=== PATIENT | male | born 1945 | race Caucasian/White ===

== ENCOUNTER 2020-04-10 13:55 | Outpatient (CLI) | payer MEDICARE, SELFPAY ==
--- NOTE | ~2020-04-10 | XR_ITS ---
EXAMINATION: XR knee LT min 4V DATE: 04/10/2020 14:18 INDICATION: Left knee pain. TECHNIQUE: 4 views of left knee were obtained. COMPARISON: None. FINDINGS: Bone alignment is normal. No fracture. There is mild tricompartmental osteoarthritis. No kn ee joint effusion. IMPRESSION: 1. Mild left knee osteoarthritis. Reviewed, dictated and finalized at location A.
== END 2020-04-10 13:56 | disposition home or self-care (01) ==
PROVIDERS: PCP Family Medicine Adolescent Medicine; Visit Provider Family Medicine Adolescent Medicine
DX: M25.562 Pain in left knee (principal); M17.12 Unilateral primary osteoarthritis, left knee
CPT/HCPCS: 73564

== ENCOUNTER 2021-06-08 02:11 | Day surgery (SDC) | payer MEDICARE, SELFPAY ==
[2021-05-28 11:49] VITALS: BMI 29.0
[2021-06-08 08:44] VITALS: BP 153/70; PULSE 71; RESP 16; TEMP 35.9; O2SAT 95; BMI 29.6
--- NOTE | 2021-06-08 08:57 | WPDANESEPPF ---
Anes - Initial Pre Proc Eval Procedure: Operation Date: 06/08/21 09:30 Proposed Procedures p Screening Colonoscopy - Blake Ledesma MD Date/Time: 06/08/21 08:57 Surgeon: Blake Ledesma MD Pre Op Diagnosis: hx of colon ca/polyps Patient Data Age: 75 Gender: M Height: 1.85 m Weight: 100 kg Allergies Allergy/AdvReac Type Severity Reaction Status Date / Time Mold (Blue) Cheese Allergy Mild na Uncoded 06/08/21 08:54 RAGWEED Allergy Mild na Uncoded 06/08/21 08:54 Home Medications Medication Instructions Recorded Confirmed Type allopurinol 300 mg tablet 300 mg PO DAILY 02/05/20 05/28/21 History aspirin 325 mg tablet 325 mg PO DAILY 02/05/20 05/28/21 History atorvastatin 80 mg tablet 80 mg PO DAILY 02/05/20 05/28/21 History bupropion HCl 200 mg tablet,12 hr 200 mg PO DAILY 02/05/20 05/28/21 History sustained-release cyanocobalamin (vitamin B-12) 1,000 mcg IM MONTHLY 02/05/20 05/28/21 History 1,000 mcg/mL injection kit ergocalciferol (vitamin D2) 50,000 50,000 unit PO WEEKLY 02/05/20 05/28/21 History unit tablet paroxetine HCl 40 mg tablet 40 mg PO DAILY 02/05/20 05/28/21 History propranolol 80 mg capsule,extended 80 mg PO DAILY 02/05/20 06/08/21 History release 24 hr melatonin 5 mg capsule 10 mg PO DAILY cap 02/13/20 05/28/21 History metformin 500 mg tablet 1,500 mg PO DAILY tablet 02/13/20 05/28/21 History quetiapine 200 mg tablet 250 mg PO DAILY tablet 02/13/20 05/28/21 History testosterone cypionate 200 mg/mL 1.5 mg IM MONTHLY ml 02/13/20 05/28/21 History intramuscular oil insulin NPH isoph U-100 human 100 36 unit SUBCUT DAILY ml 03/10/21 06/08/21 History unit/mL (3 mL) subcutaneous pen lisinopril 10 mg tablet 10 mg PO DAILY tablet 03/10/21 05/28/21 History sodium,potassium,mag sulfates See Rx Instructions .ROUTE 05/27/21 Rx [Suprep Bowel Prep Kit] .COMPLEX #1 ml nitroglycerin 0.4 mg SUBLINGUAL Q5M PRN 05/28/21 05/28/21 History Patient hx anesthesia problems: none Family hx anesthesia problems: none [facility] Past Medical History Medical History After cataract, bilateral Colon cancer Coronary artery disease Diabetes Hypersomnia Hypertension Rhinitis Sleep apnea Surgical History Surgical History Hx of CABG Family History Family History Father Kidney failure CHF (congestive heart failure) Mother Cerebrovascular accident Narcolepsy Social History Social History Smoking packs per day: 1 Smoking cigarettes per day: 20.0 Years smoked: 20 Smoking pack-years: 20.00 Smoking status: Former smoker Tobacco type: cigarettes and cigars Smoking end date: 11/07/85 Living arrangements: with family Spiritual care concerns: No Anes - Eval Final PreProcedure Day of Procedure 06/08/21 08:57 Patient weight: obese Heart: regular rate and rhythm and murmur (II/ SM) Lungs: clear to auscultation Airway: Mallampati scale class II Neurological: alert and oriented Last oral intake: >/= 8 hours ASA classification: III Emergent: no Anesthetic plan: proceed Anesthesia type and monitoring: general GIVS and standard monitoring Informed Consent: The patient's anesthetic plan and its attendant risks and benefits were discussed with the patient/family/POA. Questions were solicited and answers provided to the satisfaction of the patient/family/POA.
[2021-06-08 09:10] LABS: Glucose Point of Care 82 mg/dl (65-105)
[2021-06-08] MEDS: LACTATED RINGERS 1,000 ML 150 ML IV CONT (09:10)
--- NOTE | 2021-06-08 09:16 | PM.HPGS ---
History of Present Illness History of Present Illness Consent: Risks, benefits, and alternatives have been discussed and questions answered. Patient agrees to proceed with procedure. Chief complaint: hx of colon ca/polyps Narrative: Blake Graham is a 75 year old male here for colon cancer screening. He has a history of colon cancer 18 years ago. He also has had polyps removed in the past. Review of Systems Review of Systems: All systems reviewed & are unremarkable except as noted in HPI and below PMFSH Past Medical History Medical History After cataract, bilateral Colon cancer Coronary artery disease Diabetes Hypersomnia Hypertension Rhinitis Sleep apnea Surgical History Surgical History Hx of CABG Family History Family History Father Kidney failure CHF (congestive heart failure) Mother Cerebrovascular accident Narcolepsy Social History Social History Smoking packs per day: 1 Smoking cigarettes per day: 20.0 Years smoked: 20 Smoking pack-years: 20.00 Smoking status: Former smoker Tobacco type: cigarettes and cigars Smoking end date: 11/07/85 Living arrangements: with family Spiritual care concerns: No Meds Home Medications and Allergies Home Medications Medication Instructions Recorded Confirmed Type allopurinol 300 mg tablet 300 mg PO DAILY 02/05/20 05/28/21 History aspirin 325 mg tablet 325 mg PO DAILY 02/05/20 05/28/21 History atorvastatin 80 mg tablet 80 mg PO DAILY 02/05/20 05/28/21 History bupropion HCl 200 mg tablet,12 hr 200 mg PO DAILY 02/05/20 05/28/21 History sustained-release cyanocobalamin (vitamin B-12) 1,000 mcg IM MONTHLY 02/05/20 05/28/21 History 1,000 mcg/mL injection kit ergocalciferol (vitamin D2) 50,000 50,000 unit PO WEEKLY 02/05/20 05/28/21 History unit tablet paroxetine HCl 40 mg tablet 40 mg PO DAILY 02/05/20 05/28/21 History propranolol 80 mg capsule,extended 80 mg PO DAILY 02/05/20 06/08/21 History release 24 hr melatonin 5 mg capsule 10 mg PO DAILY cap 02/13/20 05/28/21 History metformin 500 mg tablet 1,500 mg PO DAILY tablet 02/13/20 05/28/21 History quetiapine 200 mg tablet 250 mg PO DAILY tablet 02/13/20 05/28/21 History testosterone cypionate 200 mg/mL 1.5 mg IM MONTHLY ml 02/13/20 05/28/21 History intramuscular oil insulin NPH isoph U-100 human 100 36 unit SUBCUT DAILY ml 03/10/21 06/08/21 History unit/mL (3 mL) subcutaneous pen lisinopril 10 mg tablet 10 mg PO DAILY tablet 03/10/21 05/28/21 History sodium,potassium,mag sulfates See Rx Instructions .ROUTE 05/27/21 Rx [Suprep Bowel Prep Kit] .COMPLEX #1 ml nitroglycerin 0.4 mg SUBLINGUAL Q5M PRN 05/28/21 05/28/21 History Allergies Allergy/AdvReac Type Severity Reaction Status Date / Time Mold (Blue) Cheese Allergy Mild na Uncoded 06/08/21 08:54 RAGWEED Allergy Mild na Uncoded 06/08/21 08:54 Vital Signs Vital Signs - 24 hr 06/08/21 08:44 Temperature 35.9 C L Pulse Rate 71 Respiratory Rate 16 Blood Pressure 153/70 H Pulse Oximetry 95 Exam Resp: Auscultation: clear to auscultation bilaterally Cardio: Rate: regular rate Rhythm: regular rhythm GI: GI Palp: Yes Soft to palpation and No Tenderness to palpation present (GI) Assessment and Plan Assessment and plan (1) Colon cancer screening: Code(s): Z12.11 - Encounter for screening for malignant neoplasm of colon Status: Acute Assessment and Plan: Colonoscopy with possible biopsy or polypectomy or cautery or injection of substances.
[2021-06-08] MEDS: SIMETHICONE ORAL SUSPENSION 20 MG/0.3 ML 30 ML BOTTLE 0.6 ML IRRIGATION (09:53)
[2021-06-08 10:04] VITALS: BP 102/53; PULSE 57; RESP 27; O2SAT 95
[2021-06-08 10:14] VITALS: BP 116/64; PULSE 61; RESP 18; O2SAT 95
[2021-06-08 10:24] VITALS: BP 146/64; PULSE 62; RESP 16; O2SAT 95
[2021-06-08 10:25] LABS: Glucose Point of Care 72 mg/dl (65-105)
--- NOTE | 2021-06-08 10:26 | SUR.PHASEII ---
1026 FINGER STICK BLOOD GLUCOSE 72MG/DL. MORAIMA MIST TO DRINK.
== END 2021-06-08 10:31 | disposition home or self-care (01) ==
PROVIDERS: PCP Family Medicine Adolescent Medicine; Visit Provider Internal Medicine Gastroenterology
PROC: 0DJD8ZZ Inspection of Lower Intestinal Tract, Via Natural or Artificial Opening Endoscopic (ICD-10-PCS; CPT 45378; principal; 2021-06-08 09:30)
DX: Z12.11 Encounter for screening for malignant neoplasm of colon (principal); Z85.038 Personal history of other malignant neoplasm of large intestine; Z90.49 Acquired absence of other specified parts of digestive tract; Z98.0 Intestinal bypass and anastomosis status; I10 Essential (primary) hypertension; E11.9 Type 2 diabetes mellitus without complications; I25.10 Atherosclerotic heart disease of native coronary artery without angina pectoris; Z95.1 Presence of aortocoronary bypass graft; G47.30 Sleep apnea, unspecified; Z87.891 Personal history of nicotine dependence; Z79.82 Long term (current) use of aspirin; Z79.84 Long term (current) use of oral hypoglycemic drugs; Z79.4 Long term (current) use of insulin
CPT/HCPCS: G0105; 82948; J2704; J7120

== ENCOUNTER 2023-02-18 00:19 | Day surgery (SDC) | payer MEDICARE, SELFPAY ==
[2023-02-18] VITALS (17 sets, daily range): BP systolic 142–172; BP diastolic 56–80; PULSE 50–65; RESP 11–20; TEMP 36.3; O2SAT 96–100; BMI 29.5
[2023-02-18 07:54] LABS: Basophils Percent Auto 0.6 % (0.2-1.2); Eosinophils Absolute Auto 0.3 K/mm3 (0-0.3); Eosinophils Percent Auto 5.3 % (0-4.4); Hematocrit 36.3 % (42.0-52.0); Hemoglobin 11.5 g/dL (14.0-18.0); Immature Granulocyte Absolute 0.02 K/mm3 (0.00-0.031); Immature Granulocyte Percent A 0.3 % (0-0.5); Lymphocytes Absolute Auto 1.61 K/mm3 (0.9-3.2); Lymphocytes Percent Auto 25.8 % (18.3-44.2); Mean Corpuscular HGB Conc 31.7 g/dl (32-36); Mean Corpuscular Hemoglobin 29.8 pg (26-34); Mean Platelet Volume 10.8 fl (7.4-10.4); Monocytes Absolute Auto 0.6 K/mm3 (0.1-0.6); Monocytes Percent Auto 9.9 % (2.6-8.5); Neutrophils Absolute Auto 3.6 K/mm3 (1.3-6.7); Neutrophils Percent Auto 58.1 % (45.5-73.1); Platelet Count Result 195 k/mm3 (150-375); Red Blood Count 3.86 M/mm3 (4.6-6.20); Red Cell Distribution Width 14.7 % (11.5-14.5); White Blood Count 6.3 K/mm3 (4.5-10.0)
--- NOTE | 2023-02-18 07:58 | ECG_ITS ---
Measurements Intervals [place] Rate: 58 P: AR: 0 QRS: 9 QRSD: 109 T: 123 QT: 414 QTc: 409 Interpretive Statements SINUS BRADYCARDIA WITH 2ND DEGREE AV BLOCK, MOBITZ TYPE I (WENCKEBACH) BASELINE ARTIFACT LEFT VENTRICULAR HYPERTROPHY AND ST-T CHANGE ABNORMAL ECG NO PREVIOUS ECG AVAILABLE FOR COMPARISON Electronically Signed On 02-18-2023 16:44:56 CDT by Eligio Handy M.D.
[2023-02-18 08:05] LABS: Anion Gap 8 mmol/L (8-16); Blood Urea Nitrogen 25 mg/dL (9-20); Calcium 9.3 mg/dL (8.4-10.2); Carbon Dioxide 21 mmol/L (22-30); Chloride 110 mmol/L (98-107); Estimated CRCL calculation 67 ml/min; Estimated Glomerular Filt Rate > 60; Glucose 106 mg/dL (65-110); Potassium 4.6 mmol/L (3.4-5.0); Sodium 139 mmol/L (137-145)
--- NOTE | 2023-02-18 10:18 | WPDCARDPROC ---
Cardiac Cath Procedure Note Date of procedure:: 02/18/23 Performing physician:: German Cramer MD Indication:: severe symptomatic aortic stenosis previous CABG Brief clinical history:: this is a 77-year-old man with coronary artery disease who underwent coronary bypass grafting in the past. He now has developed severe symptomatic aortic valve stenosis. Because of worsening dyspnea right left heart catheterization has been scheduled for today with an eye towards referral for cardiothoracic surgery consultation. Procedure Procedure performed:: right heart catheterization left ventriculography coronary angiography vein graft angiography internal mammary graft angiography calculation of aortic valve area Sedation/Medication given:: fentanyl 50 mg Versed 2 mg case start time 9:22 a.m. case end time 10:12 a.m. sedation provided by Zohreh RINALDI, trained observer Access site:: right femoral artery, right femoral vein Estimated blood loss:: 25 cc Procedure note:: patient was brought to the cardiac catheterization lab in the postabsorptive state where the right femoral triangle was prepared and draped fashion. Anesthesia was provided with 1% lidocaine infiltrated locally. Using the modified Seldinger technique the femoral vein was punctured and a 7 [place] vascular sheath was placed. After this the femoral artery was punctured and a 6 [place] vascular sheath was placed. I then used a balloon tip [place]-Ravinder catheter to perform right heart catheterization measuring hemodynamics and thermodilution cardiac output and sampling av O2 difference. The [place]-Ravinder catheter was then removed. I used a 6 [place] double-lumen pigtail catheter to measure simple taney is pressures in the aorta. Following this I used a straight guidewire to probe the stenotic aortic valve, after several tries successfully cross the valve into the left ventricle and then flushed both lumens and measure simultaneous LV and aortic pressures. Following this aortic valve area was calculated. After these calculations left ventriculography was performed in the 30 degree FERNÁNDEZ projection. The pigtail catheter was then withdrawn. I used a standard 5 [place] FL4 catheter to engage inject the left coronary artery in multiple projections. Then used a standard 5 [place] JR4 catheter to engage and inject the right coronary artery as well as the saphenous vein graft. Following this I used a 5 [place] WENDY catheter to engage and inject the lead internal mammary graft. The cineangiograms were then reviewed and the case was terminated. An angiogram was done of the femoral artery through the sheath after which it was determined the sheath would be with direct manual compression as there was significant stenosis at the puncture site. 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 Findings:: Hemodynamics: Right atrial mean pressure is 13. Right ventricle 38 over 7 end-diastolic 11 pulmonary artery pressure 42 over 11 pulmonary capillary wedge pressure 22. Central aortic pressure 110 over 44 a left ventricle 180 over 0 end-diastolic pressure 22. Mean aortic valve gradient is 44.5 mmHg peak gradient 84 mmHg. The thermodilution cardiac output is 4.3 liters/minutes giving an index of 1.9. Aortic valve area 0.59 cm2. Left ventricle: The LV appears to be normal in size all segments contract appropriately. The global ejection fraction I would visually estimate to be 55%. The aortic valve is heavily calcified with poor leaflet mobility. Left main coronary artery is medium in caliber there is mild distal left main disease about 40-50% stenosis. The left anterior descending is a moderate caliber artery with stent material in the proximal segment of the LAD. There are 2 proximal lesions in the LAD of more than 90%. This includes InStent stenosis. Distal to this there is competitive filling seen in the LA
== END 2023-02-18 18:35 | disposition home or self-care (01) ==
PROVIDERS: PCP Family Medicine Adolescent Medicine; Visit Provider Specialist
PROC: 4A023N8 Measurement of Cardiac Sampling and Pressure, Bilateral, Percutaneous Approach (ICD-10-PCS; CPT 93461; principal; 2023-02-18 09:00)
DX: I35.0 Nonrheumatic aortic (valve) stenosis (principal); I25.10 Atherosclerotic heart disease of native coronary artery without angina pectoris; R06.00 Dyspnea, unspecified; Z95.1 Presence of aortocoronary bypass graft; Z95.5 Presence of coronary angioplasty implant and graft; Z85.038 Personal history of other malignant neoplasm of large intestine; Z90.49 Acquired absence of other specified parts of digestive tract; Z79.82 Long term (current) use of aspirin; Z79.4 Long term (current) use of insulin; Z79.84 Long term (current) use of oral hypoglycemic drugs
CPT/HCPCS: 36415; 80048; 85025; 93005; 93461; C1769; C1887; C1894; J1644; J2250; J3010; J7040

== ENCOUNTER 2023-05-06 12:16 | Inpatient (IN) | payer MEDICARE, SELFPAY ==
[2023-05-06] VITALS (29 sets, daily range): BP systolic 159–191; BP diastolic 59–78; PULSE 50–89; RESP 12–22; TEMP 36.4–36.7; O2SAT 10–99; BMI 29.9
--- NOTE | ~2023-05-06 | XR_ITS ---
EXAMINATION: XR chest 2V DATE: 05/06/2023 13:56 INDICATION: Shortness of breath. Prior asbestos exposure. TECHNIQUE: PA and lateral views of the chest were obtained. COMPARISON: Chest radiograph dated 07/27/2018 and 10/28/2017 FINDINGS: No significant change in chronic linear and bandlike atelectasis/scarring the left lower lung zone an d pleural thickening versus chronic small loculated left pleural effusion. Small calcified right midd le lobe nodule consistent with old granulomatous disease. No pleural effusion or pneumothorax. Cardio megaly. Median sternotomy wires and mediastinal surgical clips are seen, likely from prior coronary a rtery bypass grafting. Aortic valve repair. Cholecystectomy clips in right upper quadrant. There are bridging osteophytes at multiple levels in the spine, consistent with diffuse idiopathic skeletal hyp erostosis (DISH). IMPRESSION: 1. Unchanged atelectasis/scarring at the left lower lung zone with associated chronic small left pleu ral effusion versus pleural thickening. No acute cardiopulmonary disease. 2. Cardiomegaly. Reviewed, dictated and finalized at location A. IMPRESSION: 1. Unchanged atelectasis/scarring at the left lower lung zone with associated c hronic small left pleural effusion versus pleural thickening. No acute cardiopu lmonary disease. 2. Cardiomegaly.
--- NOTE | 2023-05-06 13:36 | ECG_ITS ---
Measurements Intervals [place] Rate: 51 P: -14 MI: 237 QRS: 3 QRSD: 106 T: 53 QT: 449 QTc: 417 Interpretive Statements SINUS BRADYCARDIA WITH SECOND-DEGREE AV BLOCK MOBITZ TYPE 1 NONSPECIFIC T-WAVE ABNORMALITY ABNORMAL ECG COMPARED TO ECG 02/18/2023 08:02:56 NO DIFFERENCE Electronically Signed On 05-06-2023 17:20:05 CDT by German Cramer M.D.
--- NOTE | 2023-05-06 13:56 | ED.RECABL ---
HPI - Recheck/Abnormal Lab/Rx General Chief Complaint: Recheck/Abnormal Lab/Rx Stated Complaint: heavy breathing, htn; post op issue Time Seen by Provider: 05/06/23 12:51 History of Present Illness HPI narrative: Patient is a 77-year-old male with a recent TAVR presenting with shortness of breath. Patient's is at bedside and assists with the history. Patient had a TAVR on April 15 at [facility]. For the last week or so he has had worsening dyspnea and orthopnea. They spoke with their surgical team who advised he come in for evaluation. States that he is extremely short of breath with any exertion. Reports mild lightheadedness but no chest pain. No leg swelling. Denies fevers or chills. Denies further complaints. Related Data Home Medications Medication Instructions Recorded Confirmed bupropion HCl 200 mg tablet,12 hr 200 mg PO DAILY 02/05/20 05/06/23 sustained-release ergocalciferol (vitamin D2) 50,000 50,000 unit PO WEEKLY 02/05/20 05/06/23 unit tablet melatonin 5 mg capsule 10 mg PO DAILY 02/13/20 05/06/23 quetiapine 200 mg tablet (Seroquel) 250 mg PO HS 02/13/20 05/06/23 quetiapine 50 mg tablet 50 mg PO QHS 04/21/22 05/06/23 aspirin 81 mg tablet,delayed 81 mg PO DAILY 04/19/23 05/06/23 release (Adult Low Dose Aspirin) clopidogrel 75 mg tablet 75 mg PO DAILY 04/19/23 05/06/23 hydralazine 25 mg tablet 25 mg PO TID 04/19/23 05/06/23 insulin admin supplies 04/25/23 05/06/23 allopurinol 300 mg tablet 1 mg PO DAILY 05/06/23 05/06/23 paroxetine HCl 40 mg tablet 40 mg PO HS 05/06/23 05/06/23 propranolol 80 mg capsule,24 80 mg PO DAILY 05/06/23 05/06/23 hr,extended release Allergies Allergy/AdvReac Type Severity Reaction Status Date / Time Mold Allergy Mild Cough Uncoded 05/06/23 18:59 RAGWEED Allergy Mild na Uncoded 05/06/23 18:59 Review of Systems Review of Systems: All systems reviewed & are unremarkable except as noted in HPI and below PMFSH Past Medical History Medical History After cataract, bilateral BPH (benign prostatic hyperplasia) Depression with anxiety Diabetes History of colon cancer With chemotherapy and colectomy History of mitral valve prolapse Hypersomnia Hypertension Nephrolithiasis Personal history of colonic polyps Personal history of other malignant neoplasm of large intestine (~2000) Sleep apnea W[place]ke[place] Surgical History Surgical History H/O cataract removal with insertion of prosthetic lens (~2020) H/O heart artery stent (~2005) History of cholecystectomy (~1985) History of colectomy History of colonoscopy with polypectomy History of lithotripsy History of prosthetic aortic valve (04/2023) History of surgical amputation of finger of right hand Partial History of ventral hernia repair Hx of CABG (~2009) Triple bypass and then he had a broken wire that need to be repaired. Family History Family History Father Kidney failure CHF (congestive heart failure) Heart disease Hypertension Mother Cerebrovascular accident Narcolepsy Other Carcinoma of colon Colon polyp Depression Diabetes mellitus Social History Social History Social History: The patient lives with his who is the durable power civil litigation attorney for healthcare. The patient has 1 child. The patient used to smoke. 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 Code status full code Smoking packs per day: 1 Smoking cigarettes per day: 20.0 Years smoked: 20 Smoking pack-years: 20.00 Smoking status: Former smoker Tobacco type: cigarettes and cigars Second hand tobacco smoke exposure: No Smoking end date: 11/07/85 Alcohol intake: never Substance use: never Substance use type: does not use Lack of Transportation: No Lack
[2023-05-06 13:57] LABS: Basophils Percent Auto 0.5 % (0.2-1.2); Eosinophils Absolute Auto 0.2 K/mm3 (0-0.3); Eosinophils Percent Auto 3.6 % (0-4.4); Hematocrit 32.7 % (42.0-52.0); Hemoglobin 10.2 g/dL (14.0-18.0); Immature Granulocyte Absolute 0.01 K/mm3 (0.00-0.031); Immature Granulocyte Percent A 0.2 % (0-0.5); Lymphocytes Absolute Auto 1.04 K/mm3 (0.9-3.2); Mean Corpuscular HGB Conc 31.2 g/dl (32-36); Mean Corpuscular Hemoglobin 29.3 pg (26-34); Mean Platelet Volume 10.4 fl (7.4-10.4); Monocytes Absolute Auto 0.8 K/mm3 (0.1-0.6); Monocytes Percent Auto 14.2 % (2.6-8.5); Neutrophils Absolute Auto 3.7 K/mm3 (1.3-6.7); Neutrophils Percent Auto 63.5 % (45.5-73.1); Platelet Count Result 204 k/mm3 (150-375); Red Blood Count 3.48 M/mm3 (4.6-6.20); Red Cell Distribution Width 15.4 % (11.5-14.5); White Blood Count 5.8 K/mm3 (4.5-10.0)
[2023-05-06 14:07] LABS: INR 1.1; Prothrombin Time 14.3 Seconds (11.1-14.7)
[2023-05-06 14:08] LABS: Partial Thromboplastin Time 34.5 SECONDS (22.3-36.8)
[2023-05-06 14:11] LABS: Alanine Aminotransferase 24 U/L (6-50); Alkaline Phosphatase 82 U/L (38-126); Anion Gap 6 mmol/L (8-16); Aspartate Amino Transferase 29 U/L (17-59); Bilirubin,Total 0.9 mg/dL (0.2-1.3); Blood Urea Nitrogen 18 mg/dL (9-20); Calcium 9.2 mg/dL (8.4-10.2); Carbon Dioxide 25 mmol/L (22-30); Chloride 108 mmol/L (98-107); Estimated CRCL calculation 75 ml/min; Estimated Glomerular Filt Rate > 60; Glucose 83 mg/dL (65-110); Potassium 4.4 mmol/L (3.4-5.0); Sodium 139 mmol/L (137-145)
[2023-05-06 14:22] LABS: NT Pro B Type Natriuretic Pept 1470 pg/mL (19.9-100); Troponin I 0.017 ng/mL (0.000-0.034)
[2023-05-06 14:33] LABS: Influenza A QL RT-PCR Negative (Negative); Influenza B QL RT-PCR Negative (Negative); SARS-CoV-2 RNA PCR Negative (Negative)
--- NOTE | 2023-05-06 15:18 | ECG_ITS ---
Measurements Intervals [place] Rate: 52 P: 51 HI: 213 QRS: 6 QRSD: 106 T: 55 QT: 449 QTc: 418 Interpretive Statements SINUS BRADYCARDIA SECOND-DEGREE AV BLOCK MOBITZ TYPE [address] DEPRESSION [0.025+ mV ST DEPRESSION] ABNORMAL ECG COMPARED TO ECG 05/06/2023 14:18:01 NO DIFFERENCE t Electronically Signed On 05-06-2023 17:24:29 CDT by German Cramer M.D.
[2023-05-06 17:07] LABS: Troponin I 0.016 ng/mL (0.000-0.034)
--- NOTE | 2023-05-06 18:10 | PM.IMHP ---
H&P: HPI History of Present Illness Date/Time: 05/06/23 18:10 Chief Complaint: Difficulty breathing Narrative: This is a 77-year-old male patient who underwent a TAVR on April 15 at [facility]. The patient has had worsening dyspnea and orthopnea. The ED physician spoke with the surgical team and was advised that the patient should come in for evaluation. The patient was extremely short of breath. Is reported that the surgical team attempted to have an emergency echo set up but they were unable to perform this at [facility]. Is reported to me from the ED physician that the patient was not accepted at [facility] and it was felt that the patient could be managed year. The patient denies any fever chills. No further complaints. His H&H is 10.2 and 32.7. His blood sugar was 146. Troponin negative x3. BNP was listed as 1470. The patient was negative for influenza A/B and COVID. Chest x-ray was read as the followingUnchanged atelectasis/scarring at the left lower lung zone with associated chronic small left pleural effusion versus pleural thickening. No acute cardiopulmonary disease. 2. Cardiomegaly. The patient also has a winkie bach which had been noted on previous EKGs. The patient is being admitted to observation status on the date of service of 05/06/2023 Review of Systems Review of Systems: All systems reviewed & are unremarkable except as noted in HPI and below Constitutional: Constitutional: Reports as per HPI and Reports no additional constitutional complaints Eyes: Eyes: Reports as per HPI and Reports no additional eye complaints ENT: Reports system reviewed and no additional complaints, except as documented and Reports Normal hearing present Cardiovascular: Cardiovascular: Reports no additional cardiovascular complaints Respiratory: Respiratory: Reports no additional respiratory complaints and Reports no additional respiratory complaints Gastrointestinal: Gastrointestinal: Reports as per HPI and Reports no additional gastrointestinal complaints Musculoskeletal: Musculoskeletal: Reports no additional musculoskeletal complaints Integumentary/Breasts: Skin/Breast: Reports system reviewed and no additional complaints, except as docu and Reports as per HPI Neurologic: Reports system reviewed and no additional complaints, except as documented, Reports as per HPI and Reports Normal hearing present Psychiatric: Psychiatric: Reports no additional psychiatric complaints and Reports as per HPI Endocrine: Endocrine: Reports no additional endocrine complaints Hematologic/Lymphatic: Hematologic/Lymphatic: Reports no additional hematologic/lymphatic complaints Allergic/Immunologic: Allergic/Immunologic: Reports no additional allergic/immunologic complaints [facility] Past Medical History Medical History (Updated 05/07/23 @ 01:35 by Rosie Valdez NP) After cataract, bilateral BPH (benign prostatic hyperplasia) Depression with anxiety Diabetes History of colon cancer With chemotherapy and colectomy History of mitral valve prolapse Hypersomnia Hypertension Nephrolithiasis Personal history of colonic polyps Personal history of other malignant neoplasm of large intestine (~2000) Sleep apnea [facility] Surgical History Surgical History (Updated 05/07/23 @ 01:30 by Rosie Valdez NP) H/O cataract removal with insertion of prosthetic lens (~2020) H/O heart artery stent (~2005) History of cholecystectomy (~1985) History of colectomy History of colonoscopy with polypectomy History of lithotripsy History of prosthetic aortic valve (04/2023) History of surgical amputation of finger of right hand Partial History of ventral hernia repair Hx of CABG (~2009) Triple bypass and then he had a broken wire that need to be repaired. Family History Family History Father Kidney failure CHF (congestive heart failure) Heart disease Hypertension Mother
--- NOTE | 2023-05-06 18:24 | ADMGEN ---
This patient, Blake Graham, was admitted to Medical Room 240-. Patient/family oriented to hospital policies and general routines including ID bracelet, bed and alarms, visiting hours, pain management, procedures, bathroom and other care routines, personal items, smoking policy, room service/diet, and visiting hours. Information on how to activate the Rapid Response Team has been discussed. Patient/Family are encouraged to report perceived risks to care and to ask questions if they do not understand what they are told or what they should do.
[2023-05-06 20:19] LABS: Troponin I 0.017 ng/mL (0.000-0.034)
[2023-05-06 20:31] LABS: Glucose Point of Care 146 mg/dl (65-105)
[2023-05-06] MEDS: QUEtiapine FUMARATE 25 MG TABLET 50 MG PO (22:20)
[2023-05-06] MEDS: PARoxetine 20 MG TABLET 40 MG PO (22:20)
[2023-05-06] MEDS: QUEtiapine FUMARATE 100 MG TABLET 200 MG PO (22:20)
[2023-05-06] MEDS: MELATONIN 5 MG TABLET 10 MG PO (22:20)
[2023-05-06] MEDS: hydrALAZINE HCL 25 MG TABLET PO (22:20)
[2023-05-07] VITALS (13 sets, daily range): BP systolic 147–197; BP diastolic 64–74; PULSE 54–81; RESP 18–23; TEMP 36.1–36.8; O2SAT 94–97
--- NOTE | 2023-05-07 | ECHO_ITS ---
Patient Info Name: Blake Graham Age: 77 years : 1945 Gender: Male Ht: 73 in Wt: 227 lbs BSA: 2.33 m2 HR: 73 bpm BP: 147 / 74 mmHg Heart Rhythm: Sinus Rhythm Technical Quality: Fair Exam Date: 05/07/2023 1:19 PM Exam Location: [facility] Pulmonary Exam Room: [facility] Patient Status: Inpatient Admit Date: 05/07/2023 Staff Ordering Physician: Rosie Valdez NP Traffic Rate Clerk: Julia Baig RDCS Attending Provider: Gato Cabrales MD Referring Physician: Courtney DE LEON; Exam Type: CA echo doppler color flow Study Info Indications - pleural effusion sob - s/p TAVR 04-15-23 Complete two-dimensional, color flow and Doppler transthoracic echocardiogram is performed. Summary 1. Complete two-dimensional, color flow and Doppler transthoracic echocardiogram is performed. 2. Left ventricular chamber dimension is normal. 3. Left ventricular systolic function is normal, estimated at 65-70%. 4. There is mildly increased left ventricular wall thickness. 5. The left ventricular diastolic function is grade II diastolic dysfunction. 6. Right atrial chamber dimension is moderate to severely enlarged. 7. Left atrial chamber dimension is moderately enlarged. 8. The bioprosthetic aortic valve is not well visualized. The valve appears to be well seated. Peak velocity and gradients appeared within normal limits without evidence of significant prosthetic valve stenosis. 9. There is no regurgitation of the not well visualized prosthetic aortic valve. 10. There is mild mitral valve regurgitation. 11. There is mild tricuspid valve regurgitation. 12. No pulmonary hypertension, estimated pulmonary arterial systolic pressure is 31 mmHg. Left Ventricle Left ventricular chamber dimension is normal. Left ventricular systolic function is normal, estimated at 65-70%. There is mildly increased left ventricular wall thickness. The left ventricular diastolic function is grade II diastolic dysfunction. Right Ventricle Right ventricular chamber dimension is normal. Right ventricular systolic function is normal. Left Atria Left atrial chamber dimension is moderately enlarged. Right Atria Right atrial chamber dimension is moderate to severely enlarged. Aortic Valve The bioprosthetic aortic valve is not well visualized. The valve appears to be well seated. Peak velocity and gradients appeared within normal limits without evidence of significant prosthetic valve stenosis. There is no regurgitation of the not well visualized prosthetic aortic valve. Pulmonic Valve The pulmonic valve is not well visualized. Mitral Valve The mitral valve has thickened leaflets. There is mild mitral valve regurgitation. The mitral valve annulus is severely calcified. Tricuspid Valve The tricuspid valve leaflets are normal. There is mild tricuspid valve regurgitation. No pulmonary hypertension, estimated pulmonary arterial systolic pressure is 31 mmHg. Pericardium/Pleural The pericardium appears normal. There is trivial pericardial effusion. Inferior Vena Cava Normal inferior vena cava with >50% collapse upon inspiration consistent with normal right atrial pressure, 5 mmHg. Aorta The aortic root size at the sinus of Valsalva is normal. There is mild-moderate aortic atherosclerosis. Left Ventricular Outflow Tract Name Value Normal LVOT 2D
[2023-05-07 05:45] LABS: Hemoglobin A1C 6.3 % (<5.7)
[2023-05-07 08:01] LABS: Glucose Point of Care 73 mg/dl (65-105)
[2023-05-07] MEDS: buPROPion HCL SR (12HR) 100 MG TABCR 200 MG PO (08:12)
[2023-05-07] MEDS: ATORVASTATIN 40 MG TABLET 80 MG PO (08:12)
[2023-05-07] MEDS: ASPIRIN 81 MG ENTERIC TABLET PO (08:12)
[2023-05-07] MEDS: CLOPIDOGREL BISULFATE 75 MG TABLET PO (08:12)
[2023-05-07] MEDS: PROPRANOLOL HCL 40 MG TABLET PO ×2 (08:12→20:32)
[2023-05-07] MEDS: TAMSULOSIN HCL 0.4 MG CAPSULE PO (08:12)
[2023-05-07] MEDS: hydrALAZINE HCL 25 MG TABLET PO ×3 (08:13→17:17)
[2023-05-07] MEDS: lisinopriL 10 MG TABLET BY MOUTH (08:13)
[2023-05-07] MEDS: allopurinoL 300 MG TABLET BY MOUTH (08:13)
[2023-05-07] MEDS: FUROSEMIDE INJ 40 MG/4 ML VIAL IV PUSH (08:13)
--- NOTE | 2023-05-07 11:30 | PM.IMPN ---
Progress Note: A&P Assessment and Plan (1) Dyspnea: Qualifiers: Dyspnea type: shortness of breath Qualified Code(s): R06.02 - Shortness of breath Code(s): R06.00 - Dyspnea, unspecified Status: Acute Assessment and Plan: Chest xray: Unchanged atelectasis/scarring at the left lower lung zone with associated chronic small left pleural effusion versus pleural thickening. No acute cardiopulmonary disease. Cardiomegaly. BNP 1470 Continue IV Lasix daily. Awaiting Echo to be done Continue with lisinopril and Propranolol cardiology consulted thank you for your help (2) Type 2 diabetes mellitus with other circulatory complications: Code(s): E11.59 - Type 2 diabetes mellitus with other circulatory complications Status: Acute Assessment and Plan: glucose is 115 Accu-Cheks AC and HS sliding scale insulin A1c 6.3 Hold 70 /30 hypoglycemia protocol (3) Pure hypercholesterolemia: Code(s): E78.00 - Pure hypercholesterolemia, unspecified Status: Acute Assessment and Plan: Continue with Lipitor (4) MARY (obstructive sleep apnea): Code(s): G47.33 - Obstructive sleep apnea (adult) (pediatric) Status: Acute Assessment and Plan: Continue with CPAP/BiPAP as per home settings. (5) Major depressive disorder, recurrent, moderate: Code(s): F33.1 - Major depressive disorder, recurrent, moderate Status: Acute Assessment and Plan: Continue with bupropion (6) Benign prostatic hyperplasia with lower urinary tract symptoms: Qualifiers: Lower urinary tract symptom detail: unspecified Qualified Code(s): N40.1 - Benign prostatic hyperplasia with lower urinary tract symptoms Code(s): N40.1 - Benign prostatic hyperplasia with lower urinary tract symptoms Status: Acute Assessment and Plan: Continue with Flomax (7) Wenckebach: Code(s): I44.1 - Atrioventricular block, second degree Status: Acute Assessment and Plan: Could be chronic Continue tele monitoring (8) Depression with anxiety: Code(s): F41.8 - Other specified anxiety disorders Status: Acute Assessment and Plan: Continue with Paxil and bupropion (9) Aortic valve prosthesis present: Onset Date: 04/2023 Code(s): Z95.2 - Presence of prosthetic heart valve Status: Acute Assessment and Plan: TAVR done on April 15. Stable at this time Echo is pending Seems stable (10) Hypertension: Qualifiers: Hypertension type: primary hypertension Qualified Code(s): I10 - Essential (primary) hypertension Code(s): I10 - Essential (primary) hypertension Status: Acute Assessment and Plan: BP is 147/76 Continue propranolol, lisinopril, furosemide Trend BP Adjust therapy as indicated Time Spent With Patient Time: 54 minutes Time with patient: Greater than 35 minutes Subjective Date/time seen: 05/07/23 1130 Interval history: 05/07/23 113 Patient is resting comfortably in bed. Patient states that he is still having some shortness of breath and described as intermittent. Patient stated that he will become very short of breath but then it goes away. He definitely feels like he is breathing harder specially with activity. He denies any chest pain, nausea, vomiting, sweats, constipation or diarrhea. He is on room air. Tele monitor was reviewed and showed Wenckebach. 05/06/23? 18:10 This is a 77-year-old male patient who underwent a TAVR on April 15 at [facility].? The patient has had worsening dyspnea and orthopnea.? The ED physician spoke with the surgical team and was advised that the patient should come in for evaluation.? The patient was extremely short of breath.? Is reporte
--- NOTE | 2023-05-07 11:30 | P.PNIM_ITS ---
Progress Note: A&P Assessment and Plan (1) Dyspnea: Qualifiers: Dyspnea type: shortness of breath Qualified Code(s): R06.02 - Shortness of breath Code(s): R06.00 - Dyspnea, unspecified Status: Acute Assessment and Plan: * Chest xray: Unchanged atelectasis/scarring at the left lower lung zone with associated chronic small left pleural effusion versus pleural thickening. No acute cardiopulmonary disease. Cardiomegaly. * BNP 1470 * Continue IV Lasix daily. * Awaiting Echo to be done * Continue with lisinopril and Propranolol * cardiology consulted thank you for your help (2) Type 2 diabetes mellitus with other circulatory complications: Code(s): E11.59 - Type 2 diabetes mellitus with other circulatory complications Status: Acute Assessment and Plan: * glucose is 115 * Accu-Cheks AC and HS * sliding scale insulin * A1c 6.3 * Hold 70 /30 * hypoglycemia protocol (3) Pure hypercholesterolemia: Code(s): E78.00 - Pure hypercholesterolemia, unspecified Status: Acute Assessment and Plan: * Continue with Lipitor (4) MARY (obstructive sleep apnea): Code(s): G47.33 - Obstructive sleep apnea (adult) (pediatric) Status: Acute Assessment and Plan: * Continue with CPAP/BiPAP as per home settings. (5) Major depressive disorder, recurrent, moderate: Code(s): F33.1 - Major depressive disorder, recurrent, moderate Status: Acute Assessment and Plan: * Continue with bupropion (6) Benign prostatic hyperplasia with lower urinary tract symptoms: Qualifiers: Lower urinary tract symptom detail: unspecified Qualified Code(s): N40.1 - Benign prostatic hyperplasia with lower urinary tract symptoms Code(s): N40.1 - Benign prostatic hyperplasia with lower urinary tract symptoms Status: Acute Assessment and Plan: * Continue with Flomax (7) Wenckebach: Code(s): I44.1 - Atrioventricular block, second degree Status: Acute Assessment and Plan: * Could be chronic * Continue tele monitoring (8) Depression with anxiety: Code(s): F41.8 - Other specified anxiety disorders Status: Acute Assessment and Plan: * Continue with Paxil and bupropion (9) Aortic valve prosthesis present: Onset Date: 04/2023 Code(s): Z95.2 - Presence of prosthetic heart valve Status: Acute Assessment and Plan: * TAVR done on April 15. * Stable at this time * Echo is pending * Seems stable (10) Hypertension: Qualifiers: Hypertension type: primary hypertension Qualified Code(s): I10 - Essential (primary) hypertension Code(s): I10 - Essential (primary) hypertension Status: Acute Assessment and Plan: * BP is 147/76 * Continue propranolol, lisinopril, furosemide * Trend BP * Adjust therapy as indicated Time Spent With Patient Time: 54 minutes Time with patient: Greater than 35 minutes Subjective Date/time seen: 05/07/23 1130 Interval history: 05/07/231129 Patient is resting
[2023-05-07 12:06] LABS: Glucose Point of Care 115 mg/dl (65-105)
[2023-05-07 12:10] LABS: Magnesium 2.1 mg/dL (1.6-2.3)
--- NOTE | 2023-05-07 16:27 | PM.CNCAR ---
Assessment and Plan Assessment and plan (1) Shortness of breath: Code(s): R06.02 - Shortness of breath Status: Acute Assessment and Plan: ProBNP mildly elevated 1470. Chest x-ray without significant pleural effusion and exam otherwise unremarkable. Patient has no lower extremity edema, denies weight gain abdominal distension. He does not have JVD on exam. He has received IV Lasix and although he is clinically improved as reported he felt better prior to receiving Lasix day of presentation. Clinically, he does not appear to be in decompensated heart failure although certainly this remains in the differential considerations. He has not been hypoxic and was lying flat breathing comfortably on room air. Given his inconsistent seen description of his symptoms is not entirely clear what was contribute to his shortness of breath as he reports activity improved his symptoms and sitting or resting position was worse but denies clear orthopnea. Nonetheless, it is reasonable to continue diuresis. I would change to Lasix 20 mg daily p.o. in a.m.. Accurate input and output, daily weight. Recheck BNP in a.m.. Recheck chest x-ray if symptoms persist. DVT prophylaxis. Examined history not consistent with DVT and or acute pulmonary embolism. By echo his EF is preserved without new or concerning wall motion abnormalities. He does not have a significant pericardial effusion or evidence of tamponade physiology. He does not have apparent LVOT obstruction or other severe valvular pathology to explain his symptoms. No evidence for pneumonia by chest x-ray thus far. I spent 63 minutes in the care of this patient before, during and after including discussion with the patient and nursing staff, physical examination, review of laboratory studies, outside medical record from [facility], electronic medical record, chart review, documentation, and medical decision making. (2) Wenckebach: Code(s): I44.1 - Atrioventricular block, second degree Status: Acute Assessment and Plan: Patient has a long documented history of sinus rhythm with second-degree AV block type 1 or Wenckebach. Again this is demonstrated on ECG and telemetry. No further workup or management indicated. He does not require pacemaker. Continue home propranolol. (3) Atherosclerotic heart disease of [place] coronary artery without angina pectoris: Qualifiers: [place] vs. transplanted heart: [place] heart Qualified Code(s): I25.10 - Atherosclerotic heart disease of [place] coronary artery without angina pectoris Code(s): I25.10 - Atherosclerotic heart disease of [place] coronary artery without angina pectoris Status: Acute Assessment and Plan: Stable, no anginal symptoms. Ruled out for myocardial infarction negative serial cardiac enzymes. Continue aspirin 81 mg daily, clopidogrel 75 mg daily, atorvastatin 80 mg at bedtime and propranolol 40 mg twice daily. No further ischemic workup indicated at this time. ECG without new acute ischemic changes compared to prior tracings. (4) S/P TAVR (transcatheter aortic valve replacement): Code(s): Z95.2 - Presence of prosthetic heart valve Status: Acute Assessment and Plan: Status post 26 mm bioprosthetic TAVR for severe aortic stenosis 04/15/2023 at [facility]. Continue aspirin and clopidogrel. 2D echocardiogram personally reviewed with normal gradients, valve appears well seated without regurgitation or paravalvular leak. There is no evidence this is contributing to patient's symptom complex at this time. (5) MARY on CPAP: Code(s): G47.33 - Obstructive sleep apnea (adult) (pediatric) Status: Acute Assessment and Plan: Compliance with CPAP for treatment of MARY. (6) Type 2 diabetes mellitus with other circulatory complications: Code(s): E11.59 - Type 2 diabetes mellitus with other circulatory complications Status: Acute Assessmen
[2023-05-07 16:44] LABS: Glucose Point of Care 122 mg/dl (65-105)
[2023-05-07] MEDS: lisinopriL 5 MG TABLET BY MOUTH (17:17)
[2023-05-07] MEDS: QUEtiapine FUMARATE 100 MG TABLET 200 MG PO (20:31)
[2023-05-07 20:32] LABS: Glucose Point of Care 181 mg/dl (65-105)
[2023-05-07] MEDS: MELATONIN 5 MG TABLET 10 MG PO (20:32)
[2023-05-07] MEDS: PARoxetine 20 MG TABLET 40 MG PO (20:32)
[2023-05-07] MEDS: QUEtiapine FUMARATE 25 MG TABLET 50 MG PO (20:32)
[2023-05-07] MEDS: CHOLESTYRAMINE LIGHT 4 GM POWD.PACK PO (21:17)
[2023-05-08] VITALS: PULSE 63
[2023-05-08 04:00] VITALS: PULSE 61
[2023-05-08 05:20] LABS: Basophils Percent Auto 0.5 % (0.2-1.2); Eosinophils Absolute Auto 0.2 K/mm3 (0-0.3); Eosinophils Percent Auto 3.3 % (0-4.4); Hematocrit 34.3 % (42.0-52.0); Hemoglobin 10.9 g/dL (14.0-18.0); Immature Granulocyte Absolute 0.01 K/mm3 (0.00-0.031); Immature Granulocyte Percent A 0.2 % (0-0.5); Lymphocytes Absolute Auto 1.06 K/mm3 (0.9-3.2); Lymphocytes Percent Auto 18.6 % (18.3-44.2); Mean Corpuscular HGB Conc 31.8 g/dl (32-36); Mean Corpuscular Hemoglobin 29.4 pg (26-34); Mean Corpuscular Volume 92.5 fl (80-100); Mean Platelet Volume 10.9 fl (7.4-10.4); Monocytes Absolute Auto 0.8 K/mm3 (0.1-0.6); Monocytes Percent Auto 13.8 % (2.6-8.5); Neutrophils Absolute Auto 3.6 K/mm3 (1.3-6.7); Neutrophils Percent Auto 63.6 % (45.5-73.1); Platelet Count Result 194 k/mm3 (150-375); Red Blood Count 3.71 M/mm3 (4.6-6.20); White Blood Count 5.7 K/mm3 (4.5-10.0)
[2023-05-08 05:40] LABS: Alanine Aminotransferase 23 U/L (6-50); Albumin Level 3.9 g/dL (3.5-5.1); Alkaline Phosphatase 87 U/L (38-126); Anion Gap 4 mmol/L (8-16); Aspartate Amino Transferase 32 U/L (17-59); Bilirubin,Total 1.1 mg/dL (0.2-1.3); Blood Urea Nitrogen 20 mg/dL (9-20); Calcium 9.4 mg/dL (8.4-10.2); Carbon Dioxide 31 mmol/L (22-30); Chloride 103 mmol/L (98-107); Estimated CRCL calculation 61 ml/min; Estimated Glomerular Filt Rate > 60; Glucose 104 mg/dL (65-110); Magnesium 2.1 mg/dL (1.6-2.3); Sodium 138 mmol/L (137-145)
[2023-05-08 07:04] LABS: NT Pro B Type Natriuretic Pept 1070 pg/mL (19.9-100)
[2023-05-08 07:28] VITALS: BP 179/70; PULSE 63; RESP 18; TEMP 36.6; O2SAT 94
[2023-05-08 07:36] LABS: Free T4 Free Thyroxine Reflex 0.72 ng/dL (0.78-2.19)
[2023-05-08 08:00] VITALS: PULSE 70
[2023-05-08 08:40] LABS: Glucose Point of Care 109 mg/dl (65-105)
[2023-05-08] MEDS: FUROSEMIDE 20 MG TABLET PO (09:11)
[2023-05-08] MEDS: ASPIRIN 81 MG ENTERIC TABLET PO (09:11)
[2023-05-08] MEDS: ATORVASTATIN 40 MG TABLET 80 MG PO (09:11)
[2023-05-08] MEDS: buPROPion HCL SR (12HR) 100 MG TABCR 200 MG PO (09:11)
[2023-05-08] MEDS: hydrALAZINE HCL 25 MG TABLET PO ×2 (09:11→12:33)
[2023-05-08] MEDS: PROPRANOLOL HCL 40 MG TABLET PO (09:11)
[2023-05-08] MEDS: CLOPIDOGREL BISULFATE 75 MG TABLET PO (09:11)
[2023-05-08] MEDS: allopurinoL 300 MG TABLET BY MOUTH (09:12)
[2023-05-08] MEDS: TAMSULOSIN HCL 0.4 MG CAPSULE PO (09:12)
[2023-05-08] MEDS: lisinopriL 20 MG TABLET PO (09:34)
[2023-05-08 12:16] LABS: Glucose Point of Care 188 mg/dl (65-105)
--- NOTE | 2023-05-08 12:30 | P.DS_ITS ---
DS: Admitting Diagnosis Discharge Date 05/08/23 1230 Admitting Diagnosis CHF with possible exacerbation, shortness of breath DS: Discharge Diagnosis Discharge Diagnosis (1) Diastolic heart failure: Qualifiers: Heart failure chronicity: acute on chronic Qualified Code(s): I50.33 - Acute on chronic diastolic (congestive) heart failure Code(s): I50.30 - Unspecified diastolic (congestive) heart failure Status: Acute Assessment and Plan: * presented with shortness of breath, dyspnea with exertion * Acute on chronic diastolic heart failure with probably exacerbation * BNP slightly elevated at 1470, repeat BNP * Echo shows EF of 65-70% with a grade 2 diastolic dysfunction * Strict I&Os * Daily weights * trend urinary output * Transition IV lasix to PO lasix (2) Dyspnea: Qualifiers: Dyspnea type: shortness of breath Qualified Code(s): R06.02 - Shortness of breath Code(s): R06.00 - Dyspnea, unspecified Status: Acute Assessment and Plan: * Chest xray: Unchanged atelectasis/scarring at the left lower lung zone with associated chronic small left pleural effusion versus pleural thickening. No acute cardiopulmonary disease. Cardiomegaly. * BNP 1470 * Continue IV Lasix daily. * Awaiting Echo to be done * Continue with lisinopril and Propranolol * cardiology consulted thank you for your help (3) Type 2 diabetes mellitus with other circulatory complications: Code(s): E11.59 - Type 2 diabetes mellitus with other circulatory complications Status: Acute Assessment and Plan: * glucose is 115 * Accu-Cheks AC and HS * sliding scale insulin * A1c 6.3 * Hold 70 /30 * hypoglycemia protocol (4) Pure hypercholesterolemia: Code(s): E78.00 - Pure hypercholesterolemia, unspecified Status: Acute Assessment and Plan: * Continue with Lipitor (5) MARY (obstructive sleep apnea): Code(s): G47.33 - Obstructive sleep apnea (adult) (pediatric) Status: Acute Assessment and Plan: * Continue with CPAP/BiPAP as per home settings. (6) Major depressive disorder, recurrent, moderate: Code(s): F33.1 - Major depressive disorder, recurrent, moderate Status: Acute Assessment and Plan: * Continue with bupropion (7) Benign prostatic hyperplasia with lower urinary tract symptoms: Qualifiers: Lower urinary tract symptom detail: unspecified Qualified Code(s): N40.1 - Benign prostatic hyperplasia with lower urinary tract symptoms Code(s): N40.1 - Benign prostatic hyperplasia with lower urinary tract symptoms Status: Acute Assessment and Plan: * Continue with Flomax (8) [place]: Code(s): I44.1 - Atrioventricular block, second degree Status: Acute Assessment and Plan: * Could be chronic * Continue tele monitoring (9) Depression with anxiety: Code(s): F41.8 - Other specified anxiety disorders Status: Acute Assessment and Plan: * Continue with Paxil and bupropion (10) Aortic valve prosthesis present: Onset Date: 04/2023 Code(s): Z95.2 - Presence of prosthetic he
--- NOTE | 2023-05-08 12:30 | PM.DS ---
DS: Admitting Diagnosis Discharge Date 05/08/23 1230 Admitting Diagnosis CHF with possible exacerbation, shortness of breath DS: Discharge Diagnosis Discharge Diagnosis (1) Diastolic heart failure: Qualifiers: Heart failure chronicity: acute on chronic Qualified Code(s): I50.33 - Acute on chronic diastolic (congestive) heart failure Code(s): I50.30 - Unspecified diastolic (congestive) heart failure Status: Acute Assessment and Plan: presented with shortness of breath, dyspnea with exertion Acute on chronic diastolic heart failure with probably exacerbation BNP slightly elevated at 1470, repeat BNP Echo shows EF of 65-70% with a grade 2 diastolic dysfunction Strict I&Os Daily weights trend urinary output Transition IV lasix to PO lasix (2) Dyspnea: Qualifiers: Dyspnea type: shortness of breath Qualified Code(s): R06.02 - Shortness of breath Code(s): R06.00 - Dyspnea, unspecified Status: Acute Assessment and Plan: Chest xray: Unchanged atelectasis/scarring at the left lower lung zone with associated chronic small left pleural effusion versus pleural thickening. No acute cardiopulmonary disease. Cardiomegaly. BNP 1470 Continue IV Lasix daily. Awaiting Echo to be done Continue with lisinopril and Propranolol cardiology consulted thank you for your help (3) Type 2 diabetes mellitus with other circulatory complications: Code(s): E11.59 - Type 2 diabetes mellitus with other circulatory complications Status: Acute Assessment and Plan: glucose is 115 Accu-Cheks AC and HS sliding scale insulin A1c 6.3 Hold 70 /30 hypoglycemia protocol (4) Pure hypercholesterolemia: Code(s): E78.00 - Pure hypercholesterolemia, unspecified Status: Acute Assessment and Plan: Continue with Lipitor (5) MARY (obstructive sleep apnea): Code(s): G47.33 - Obstructive sleep apnea (adult) (pediatric) Status: Acute Assessment and Plan: Continue with CPAP/BiPAP as per home settings. (6) Major depressive disorder, recurrent, moderate: Code(s): F33.1 - Major depressive disorder, recurrent, moderate Status: Acute Assessment and Plan: Continue with bupropion (7) Benign prostatic hyperplasia with lower urinary tract symptoms: Qualifiers: Lower urinary tract symptom detail: unspecified Qualified Code(s): N40.1 - Benign prostatic hyperplasia with lower urinary tract symptoms Code(s): N40.1 - Benign prostatic hyperplasia with lower urinary tract symptoms Status: Acute Assessment and Plan: Continue with Flomax (8) [place]: Code(s): I44.1 - Atrioventricular block, second degree Status: Acute Assessment and Plan: Could be chronic Continue tele monitoring (9) Depression with anxiety: Code(s): F41.8 - Other specified anxiety disorders Status: Acute Assessment and Plan: Continue with Paxil and bupropion (10) Aortic valve prosthesis present: Onset Date: 04/2023 Code(s): Z95.2 - Presence of prosthetic heart valve Status: Acute Assessment and Plan: TAVR done on April 15. Stable at this time Echo is pending Seems stable (11) Hypertension: Qualifiers: Hypertension type: primary hypertension Qualified Code(s): I10 - Essential (primary) hypertension Code(s): I10 - Essential (primary) hypertension Status: Acute Assessment and Plan: BP is 147/76 Continue propranolol, lisinopril, furosemide Trend BP Adjust therapy as indicated (12) S/P TAVR (transcatheter aortic valve replacement): Code(s): Z95.2 - Presence of prosthetic heart valve Status: Acute Assessment and P
[2023-05-08 12:32] VITALS: BP 142/63; PULSE 59; RESP 18; TEMP 36.2; O2SAT 98
--- NOTE | 2023-05-08 12:53 | PM.PNCARD ---
Progress Note: A&P Assessment and Plan (1) Diastolic heart failure: Qualifiers: Heart failure chronicity: acute Qualified Code(s): I50.31 - Acute diastolic (congestive) heart failure Code(s): I50.30 - Unspecified diastolic (congestive) heart failure Status: Acute Assessment and Plan: ProBNP mildly elevated 1470. Chest x-ray without significant pleural effusion and exam otherwise unremarkable. Patient has no lower extremity edema, denies weight gain abdominal distension. He does not have JVD on exam. He has received IV Lasix and although he is clinically improved as reported he felt better prior to receiving Lasix day of presentation. Clinically, he does not appear to be in decompensated heart failure although certainly this remains in the differential considerations. He has not been hypoxic and was lying flat breathing comfortably on room air. Given his inconsistent seen description of his symptoms is not entirely clear what was contribute to his shortness of breath as he reports activity improved his symptoms and sitting or resting position was worse but denies clear orthopnea. Nonetheless, it is reasonable to continue diuresis. I would change to Lasix 20 mg daily p.o. in a.m.. Accurate input and output, daily weight. Recheck BNP in a.m.. Recheck chest x-ray if symptoms persist. DVT prophylaxis. Examined history not consistent with DVT and or acute pulmonary embolism. By echo his EF is preserved without new or concerning wall motion abnormalities. He does not have a significant pericardial effusion or evidence of tamponade physiology. He does not have apparent LVOT obstruction or other severe valvular pathology to explain his symptoms. No evidence for pneumonia by chest x-ray thus far. Very lengthy discussion held with the patient and his at bedside. All questions answered to their satisfaction. Given evidence for 10-12 lb weight gain over the past few weeks, evidence of orthopnea and improvement with diuretic therapy reasonable to conclude symptoms related to a mild degree of heart failure with preserved ejection fraction. I suspect his symptoms are combination of increased activity status post TAVR with a degree of deconditioning and acute mild decompensated diastolic heart failure perhaps worsened due to uncontrolled hypertension. Ambulate to observe O2 sat, symptoms and BP. If patient feeling well nearing baseline stable for discharge home. Continue Lasix 20 mg daily. Lisinopril increased to 20 mg daily. CHF counseling performed including daily weight, low-sodium intake and to notify the office with worsening symptoms and weight gain of greater than 3-5 lb. Recommend basic metabolic panel in 2 weeks post discharge. Follow-up with Dr. Cramer in 2-4 weeks. Call office for appointment. (2) Uncontrolled hypertension: Code(s): I10 - Essential (primary) hypertension Status: Acute Assessment and Plan: Continue lisinopril. Increase to 20 mg this morning due to uncontrolled hypertension. Given additional 5 mg p.o. x1 lisinopril yesterday. BP high this morning improved repeat check. Continue hydralazine 25 mg 3 times daily. Continue Lasix 20 mg daily. Continue propranolol 40 mg q.12 hours. BP stable for discharge home. Patient instructed to contact our office early this week to update daily weights, blood pressure and symptoms. (3) Wenckebach: Code(s): I44.1 - Atrioventricular block, second degree Status: Acute Assessment and Plan: Patient has a long documented history of sinus rhythm with second-degree AV block type 1 or Wenckebach. Again this is demonstrated on ECG and telemetry. No further workup or management indicated. He does not require pacemaker. Continue home propranolol. (4) Atherosclerotic heart disease of [place] coronary artery without angina pectoris: Qualifiers: [place] vs. transplanted heart: [place] heart Qualified Code(s): I
== END 2023-05-08 14:20 | disposition home or self-care (01) | DRG 291 ==
LOC: ANHED 13:06 → ANH2MED 17:35
PROVIDERS: Nurse Practitioner; Admitting Provider Internal Medicine; Emergency Provider Emergency Medicine; PCP Family Medicine Adolescent Medicine; Visit Provider Nurse Practitioner
DX: I11.0 Hypertensive heart disease with heart failure (principal); I50.33 Acute on chronic diastolic (congestive) heart failure; E11.59 Type 2 diabetes mellitus with other circulatory complications; E78.00 Pure hypercholesterolemia, unspecified; F41.8 Other specified anxiety disorders; G47.33 Obstructive sleep apnea (adult) (pediatric); I25.10 Atherosclerotic heart disease of native coronary artery without angina pectoris; I44.1 Atrioventricular block, second degree; N40.0 Benign prostatic hyperplasia without lower urinary tract symptoms; Z20.822 Contact with and (suspected) exposure to COVID-19; Z95.1 Presence of aortocoronary bypass graft; Z95.2 Presence of prosthetic heart valve; Z95.5 Presence of coronary angioplasty implant and graft; Z98.41 Cataract extraction status, right eye; Z98.42 Cataract extraction status, left eye; Z96.1 Presence of intraocular lens; Z85.038 Personal history of other malignant neoplasm of large intestine; Z90.49 Acquired absence of other specified parts of digestive tract; Z92.21 Personal history of antineoplastic chemotherapy; Z89.021 Acquired absence of right finger(s); Z87.891 Personal history of nicotine dependence; Z79.02 Long term (current) use of antithrombotics/antiplatelets; Z79.4 Long term (current) use of insulin; Z79.82 Long term (current) use of aspirin
CPT/HCPCS: 36415; 71046; 80053; 82948; 83036; 83735; 83880; 84439; 84443; 84484; 85025; 85610; 85730; 87636; 93005; 93306; 96374; 99285; A9270; G0378; J1940

== ENCOUNTER 2023-07-06 11:54 | Outpatient (CLI) | payer MEDICARE, SELFPAY ==
--- NOTE | ~2023-07-06 | US_ITS ---
EXAMINATION: US renal BI DATE: 07/06/2023 13:20 INDICATION: NEPHROLITHIASIS TECHNIQUE: Multiple grayscale and Doppler ultrasound images of the kidneys were obtained. COMPARISON: None. FINDINGS: The right kidney measures 13.6 x 6.9 x 6.5 cm. The left kidney measures 13.0 x 6.2 x 5.3 cm. The kidn eys demonstrate normal parenchymal echogenicity. There is no hydronephrosis. The bladder is partially distended. Bilateral ureteral jets. IMPRESSION: Unremarkable renal sonogram findings. Reviewed, dictated and finalized at location K.
== END 2023-07-06 11:55 | disposition home or self-care (01) ==
PROVIDERS: PCP Family Medicine Adolescent Medicine; Visit Provider Internal Medicine Nephrology
DX: N20.0 Calculus of kidney (principal)
CPT/HCPCS: 76775

== ENCOUNTER 2023-08-15 08:30 | Outpatient (RCR) | payer MEDICARE, SELFPAY | END 2023-08-15 10:29 | disposition home or self-care (01) | LOC: ANHCPREHAB 08:30 | PROVIDERS: PCP Family Medicine Adolescent Medicine; Visit Provider Family Medicine Adolescent Medicine | DX: Z95.2 Presence of prosthetic heart valve (principal) | CPT/HCPCS: 76775; 93798 ==

== ENCOUNTER 2024-04-19 21:23 | Emergency (ER) | payer MEDICARE, SELFPAY ==
[2024-04-19] VITALS (8 sets, daily range): BP systolic 148–185; BP diastolic 64–126; PULSE 74–89; RESP 13–22; TEMP 36.7; O2SAT 98–100
--- NOTE | ~2024-04-19 | CT_ITS ---
[facility] Ordering provider: Eileen Aragon PA-C History: . fall from height . Comparison: None. Technique: CT chest, abdomen and pelvis with IV contrast only. Radiation reduction technique utilized. DLP 1753mGy. FINDINGS: CHEST: --VISUALIZED THORACIC INLET: Normal. --MEDIASTINUM: Aorta/coronary arteries: Mild atheromatous disease. Heart/other: The heart is not enlarged. Aortic valve prosthesis. Lymph nodes: No mediastinal or hilar adenopathy. Subcarinal calcified lymph node. --LUNGS: Atelectatic changes in the left lung base. Pneumonia is not excluded. No pulmonary nodules o r masses. No effusions. No pneumothorax. --MUSCULOSKELETAL: Soft tissues: The superficial soft tissues are normal. Bones: No acute fracture. Age appropriate degenerative changes of the spine. Status post sternotomy. ABDOMEN/PELVIS: --MUSCULOSKELETAL: Bones: No acute fracture. Age appropriate degenerative changes of the spine. Superficial soft tissues: The superficial soft tissues are normal. Bilateral fat containing inguinal hernias --UPPER ABDOMINAL ORGANS: Liver: Mild fat infiltration. Gallbladder: Status post cholecystectomy. Spleen: Normal. Stomach/duodenum: Normal. Pancreas: Normal. Adrenals: Normal. Kidneys: Normal. --PELVIC ORGANS: The bladder is normal. --BOWEL AND MESENTERY: Colon: Postoperative changes seen in the mid transverse colon with right colectomy. . Small Bowel: Normal. No obstruction. Peritoneum/mesentery: No free air or free fluid. No mesenteric lymphadenopathy. --RETROPERITONEUM: Mild atheromatous disease of the abdominal aorta. No retroperitoneal hemorrhage o r aortic trauma. Slight narrowing of the common iliac arteries is noted. Severe narrowing of the righ t common femoral artery. Mild to moderate narrowing of the left common femoral artery. No retroperito etelvina lymphadenopathy or retroperitoneal hemorrhage. IMPRESSION: CHEST: 1. Atelectatic changes in the left lung bases. Focal Pneumonia cannot be excluded. 2. No evidence of pneumothorax or effusion. ABDOMEN/PELVIS: 1. Postoperative changes with a right hemicolectomy. 2. Mild fat infiltration of the liver. 3. Moderate to severe narrowing of the common femoral arteries bilaterally. Mild narrowing of the le ft arteries. [facility] lum [facility] Ordering provider: Eileen Aragon PA-C History: 78 years Male with . fall from height . Comparison: None. Technique: CT lumbar spine without contrast. FINDINGS: VERTEBRAE: Normal height and alignment. No subluxation or visible acute fracture. DISC SPACES: Well maintained. T12-L1: No stenosis. L1-L2: No stenosis. L2-L3: No stenosis. L3-L4: No stenosis. Diffuse disc disc bulge with bilateral narrowing of the foramina and with mare felipe L4-L5: No stenosis. Lateral disc protrusion with narrowing of the left intervertebral foramina and t he root compression L5-S1: No stenosis. Diffuse disc bulge with bilateral narrowing of the foramina and the root mare felipe. PARASPINOUS SOFT TISSUES: Mild atheromatous disease of the abdominal aorta. IMPRESSION: No acute osseous abnormalities. Multilevel degenerative disc disease. CT [facility] Ordering provider: Eileen Aragon PA-C History: . fall from height . Comparison: None. Technique: CT thoracic spine without contrast. FINDINGS: VERTEBRAE: Slight Loss of volume of C7, T1, T3, T4, T5 and T6. Fusion is seen at the level of T9, T10 and T11 Increased kyphosis. Severe degenerative changes of the spine. DISC SPACES: Multilevel narrowing of the disc in the lower thoracic area. PARASPINOUS SOFT TISSUES: Normal. IMPRESSION: No acute os
--- NOTE | ~2024-04-19 | XR_ITS ---
XR wrist LT min 3V Ordering provider: Eileen Aragon PA-C History: . pain, swelling, fall . Comparison: June 22, 2023 FINDINGS: BONES: No acute fracture or dislocation. No definite scaphoid fracture. JOINT SPACES: Well maintained. SOFT TISSUES: Normal. IMPRESSION: No acute osseous abnormality left wrist. Reviewed, dictated and finalized at location A.
--- NOTE | ~2024-04-19 | CT_ITS ---
CT cervical spine wo con Ordering provider: Ethan Guzmán MD History: . fall . Comparison: None. Technique: CT of the cervical spine was performed without contrast. Sagittal and coronal reformatted images were also obtained and reviewed. Radiation reduction technique utilized. DLP is 555.1 mGy. FINDINGS: VERTEBRAE: No subluxation or acute fracture. The occipital condyles are intact. Loss of volume of T1 , T2 and T3 most likely chronic in nature. DISC SPACES: Narrowing of the disc C6-C7. Multilevel facet degenerative disease. Multilevel uncoverte bral joint osteoarthritic changes. Narrowing of the right foramen at the level of C3-C4. Bilateral na rrowing of the foramina at the level of C5-C6. PARASPINOUS SOFT TISSUES: Normal. IMPRESSION: No acute osseous abnormality cervical spine. Reviewed, dictated and finalized at location A.
--- NOTE | ~2024-04-19 | CT_ITS ---
Noncontrast CT scan of the left wrist CLINICAL HISTORY: Status post fall TECHNIQUE: Axial noncontrast imaging of the left wrist was performed. Sagittal and coronal reformatte d images were constructed. Dose reduction technique was used on this scan by utilizing automated expo sure control and iterative reconstruction technique. The dose-length product (DLP) was 390.67 mGy-cm. Findings: There is a small nondisplaced fracture at the very dorsal aspect of the lunate, seen on lat eral view. No other fracture or dislocation seen. There are mild degenerative changes of the triphasi c right and first MCP joint. There is mild chondrocalcinosis of the TFCC. There is dorsal subcutaneou s soft tissue edema and swelling over the wrist extending laterally. IMPRESSION: Small nondisplaced fracture the dorsal lunate. Degenerative change, as above. Dorsal subcutaneous soft tissue swelling and hematoma at the wrist. Reviewed, dictated and finalized at [facility].
--- NOTE | ~2024-04-19 | CT_ITS ---
CT brain wo con Ordering provider: Ethan Guzmán MD History: 78 years Male with . fall . Comparison: None. Technique: CT of the head without contrast. Radiation reduction technique utilized. Gadolinium. 605.3 mGy. FINDINGS: BRAIN PARENCHYMA AND CSF SPACES: Mild leukoaraiosis and diffuse cortical atrophy. Mild atheromatous d isease. No midline shift, mass effect or hemorrhage. The brain parenchyma and CSF spaces are otherwi se normal. VISUALIZED PARANASAL SINUSES: Normal. MASTOIDS: Normal. BONES: Normal. SOFT TISSUES: Subgaleal hematomas seen in the right posterior frontal and left parietal area. Otherwi se, Visualized nasopharynx is normal. Superficial soft tissues are normal. IMPRESSION: No acute intracranial findings. Reviewed, dictated and finalized at location A.
[2024-04-19 21:51] LABS: Estimated CRCL calculation 50 ml/min; Estimated Glomerular Filt Rate 58
--- NOTE | 2024-04-19 22:24 | WC.ED.TRAUMA ---
HPI - Trauma General Chief Complaint: Trauma Stated Complaint: fall Time Seen by Provider: 04/19/24 21:40 Source: patient Mode of arrival: ambulatory Limitations: no limitations History of Present Illness HPI narrative: This is a 78-year-old male that presents to the emergency department after a fall tonight. Reports he was about 10-12 feet high on a ladder. He fell and landed on the rocks. He did hit his head. He does not believe he lost consciousness. Reports headache, bilateral shoulder pain, left wrist pain. He has been ambulatory since the accident. He does not take any anticoagulation. Denies vision changes, vomiting, numbness, weakness. Related Data Home Medications Medication Instructions Recorded Confirmed bupropion HCl 200 mg tablet,12 hr 200 mg PO DAILY 02/05/20 12/26/23 sustained-release ergocalciferol (vitamin D2) 50,000 50,000 unit PO WEEKLY 02/05/20 12/26/23 unit tablet melatonin 5 mg capsule 10 mg PO DAILY 02/13/20 12/26/23 quetiapine 200 mg tablet (Seroquel) 250 mg PO HS 02/13/20 12/26/23 quetiapine 50 mg tablet 50 mg PO QHS 04/21/22 12/26/23 aspirin 81 mg tablet,delayed 81 mg PO DAILY 04/19/23 12/26/23 release (Adult Low Dose Aspirin) insulin admin supplies 04/25/23 12/26/23 paroxetine HCl 40 mg tablet 40 mg PO HS 05/06/23 12/26/23 amoxicillin 500 mg tablet 2,000 mg PO ONCE 01/13/24 cyanocobalamin (vitamin B-12) 1,000 mcg PO DAILY 01/13/24 1,000 mcg capsule Allergies Allergy/AdvReac Type Severity Reaction Status Date / Time mold Allergy Intermediate Cough Verified 12/26/23 10:46 ragweed pollen Allergy Intermediate sneezing, Verified 12/26/23 10:46 coughing Review of Systems Review of Systems: CONSTITUTIONAL: Denies fever EYES: Denies visual changes CARDIOVASCULAR: Denies chest pain RESPIRATORY: Denies dyspnea. GASTROINTESTINAL: Denies abdominal pain, nausea, vomiting MUSCULOSKELETAL: Reports back pain, joint pain, and myalgia. NEUROLOGIC: Reports headache. Denies numbness, or weakness. All systems reviewed & are unremarkable except as noted in HPI and below PMFSH Past Medical History Medical History After cataract, bilateral BPH (benign prostatic hyperplasia) Depression with anxiety Diabetes History of colon cancer With chemotherapy and colectomy History of mitral valve prolapse Hypersomnia Hypertension Nephrolithiasis Personal history of colonic polyps Personal history of other malignant neoplasm of large intestine (~2000) Sleep apnea Shayan Surgical History Surgical History H/O cataract removal with insertion of prosthetic lens (~2020) H/O heart artery stent (~2005) History of cholecystectomy (~1985) History of colectomy History of colonoscopy with polypectomy History of lithotripsy History of prosthetic aortic valve (04/2023) History of surgical amputation of finger of right hand Partial History of ventral hernia repair Hx of CABG (~2009) Triple bypass and then he had a broken wire that need to be repaired. Family History Family History Father CHF (congestive heart failure) Heart disease Kidney failure Hypertension Cerebrovascular accident Emphysema lung Mother Narcolepsy Cerebrovascular accident Heart disease Sibling Carcinoma of colon Social History Social History Social History: The patient lives with his who is the durable power associate attorney for healthcare. The patient has 1 child. The patient used to smoke. 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 Code status full code Smoking packs per day: 1 Smoking cigarettes per day: 20.0 Years smoked: 24 Smoking pack-years: 24.00 Smoking status: Former smoker Tobacco type: cigarettes Second hand tobacco smoke exposu
[2024-04-19 22:45] LABS: Alanine Aminotransferase 29 U/L (6-50); Alkaline Phosphatase 93 U/L (38-126); Anion Gap 5 mmol/L (4-12); Aspartate Amino Transferase 45 U/L (17-59); Bilirubin,Total 0.8 mg/dL (0.2-1.3); Blood Urea Nitrogen 18 mg/dL (9-20); Calcium 9.4 mg/dL (8.4-10.2); Carbon Dioxide 22 mmol/L (22-30); Chloride 113 mmol/L (98-107); Estimated CRCL calculation 55 ml/min; Estimated Glomerular Filt Rate > 60; Glucose 92 mg/dL (65-110); Potassium 4.6 mmol/L (3.4-5.0); Sodium 140 mmol/L (137-145)
[2024-04-19 22:57] LABS: Basophils Percent Auto 0.3 % (0.2-1.2); Eosinophils Absolute Auto 0.3 K/mm3 (0-0.3); Eosinophils Percent Auto 2.3 % (0-4.4); Hematocrit 32.9 % (42.0-52.0); Hemoglobin 10.5 g/dL (14.0-18.0); Immature Granulocyte Absolute 0.06 K/mm3 (0.00-0.031); Immature Granulocyte Percent A 0.5 % (0-0.5); Lymphocytes Absolute Auto 1.26 K/mm3 (0.9-3.2); Lymphocytes Percent Auto 10.2 % (18.3-44.2); Mean Corpuscular HGB Conc 31.9 g/dl (32-36); Mean Corpuscular Hemoglobin 30.5 pg (26-34); Mean Corpuscular Volume 95.6 fl (80-100); Mean Platelet Volume 11.6 fl (7.4-10.4); Monocytes Percent Auto 7.7 % (2.6-8.5); Neutrophils Absolute Auto 9.8 K/mm3 (1.3-6.7); Platelet Count Result 178 k/mm3 (150-375); Red Blood Count 3.44 M/mm3 (4.6-6.20); Red Cell Distribution Width 14.6 % (11.5-14.5); White Blood Count 12.4 K/mm3 (4.5-10.0)
[2024-04-19 23:05] LABS: INR 1.1; Partial Thromboplastin Time 29.2 Seconds (22.3-36.8); Prothrombin Time 14.2 Seconds (11.1-14.7)
--- NOTE | 2024-04-19 23:06 | PC.NURSE ---
c-collar removed per provider verbal order
--- NOTE | 2024-04-19 23:21 | PC.NURSE ---
care and report given to JOSE Taveras. all questions answered.
--- NOTE | 2024-04-19 23:23 | ECG_ITS ---
Test Date: 2024-04-19 23:31:11 Measurements Intervals [place] Rate: 76 P: -51 MN: 224 QRS: 6 QRSD: 89 T: 79 QT: 341 QTc: 385 Interpretive Statements SINUS RHYTHM WITH SECOND-DEGREE AV BLOCK MOBITZ TYPE 1 NONSPECIFIC T-WAVE ABNORMALITY ABNORMAL ECG No previous ECG available for comparison Electronically Signed On 04-20-2024 07:15:07 CDT by German Cramer M.D.
[2024-04-19] MEDS: TETANUS,DIPHTHERIA,AC PERTUSSIS ADULT (0.5 ML) BOOSTRIX IM (23:27)
[2024-04-20] MEDS: ACETAMINOPHEN 500 MG TABLET 1000 MG PO (00:28)
[2024-04-20 02:48] VITALS: BP 150/88; PULSE 76; RESP 15; O2SAT 99
[2024-04-20 04:27] VITALS: BP 142/72; PULSE 78; RESP 16; O2SAT 97
== END 2024-04-20 04:30 | disposition home or self-care (01) ==
PROVIDERS: Emergency Provider Physician Assistant; PCP Family Medicine Adolescent Medicine
DX: S01.01XA Laceration without foreign body of scalp, initial encounter (principal); S62.122A Displaced fracture of lunate [semilunar], left wrist, initial encounter for closed fracture; S09.90XA Unspecified injury of head, initial encounter; W11.XXXA Fall on and from ladder, initial encounter; I48.91 Unspecified atrial fibrillation; Z23 Encounter for immunization; Z79.82 Long term (current) use of aspirin; F41.8 Other specified anxiety disorders; E11.9 Type 2 diabetes mellitus without complications; Z85.038 Personal history of other malignant neoplasm of large intestine; I10 Essential (primary) hypertension; Z95.2 Presence of prosthetic heart valve; Z87.891 Personal history of nicotine dependence
CPT/HCPCS: 12002; 29125; 36415; 70450; 71260; 72125; 72129; 72132; 73110; 73200; 74177; 80053; 85025; 85610; 85730; 90471; 90715; 93005; 99284; A9270; Q9967

== ENCOUNTER 2024-08-10 11:20 | Outpatient (CLI) | payer MEDICARE, SELFPAY ==
--- NOTE | ~2024-08-10 | XR_ITS ---
Right Shoulder Technique: AP and axillary views were obtained. Clinical History: Pain Findings: No fracture or dislocation is seen. Osseous alignment is anatomic. The glenohumeral and acr omioclavicular joint spaces are preserved. Soft tissues are unremarkable. Impression: Unremarkable right shoulder radiographs. Reviewed, dictated and finalized at [facility]. Impression: Unremarkable right shoulder radiographs.
== END 2024-08-10 11:21 | disposition home or self-care (01) ==
LOC: MICIMG 11:21
PROVIDERS: PCP Family Medicine Adolescent Medicine; Visit Provider Family Medicine Adolescent Medicine
DX: M25.511 Pain in right shoulder (principal)
CPT/HCPCS: 73030

== ENCOUNTER 2024-09-07 12:26 | Outpatient (CLI) | payer MEDICARE, SELFPAY ==
--- NOTE | ~2024-09-07 | XR_ITS ---
XR chest 2V Ordering provider: Andres Lindquist History: 79 years Male with . 1 month f/u for pna . Comparison: May 06, 2023 FINDINGS: MEDIASTINUM: The cardiac silhouette is slightly enlarged. Postoperative changes in the mediastinum. Valve prosthesis is noted. LUNGS: No effusions or pneumothorax. Minimal opacification the left lung base seen which may indicate atelectasis versus pneumonia. Follow-up advised. Blunting of the left costophrenic angle which may b e due to fibrosis or effusion. Vague opacity in the right mid zone most likely summation shadow. Follow-up in 3 months advised. OTHER: No free air under the diaphragm. Degenerative changes of the spine. IMPRESSION: Minimal opacification the left lung base suggestive of atelectasis versus pneumonia. Vague opacity in the right mid zone most likely summation shadow. Follow-up in 3 months advised. Reviewed, dictated and finalized at location A. IMPRESSION: Minimal opacification the left lung base suggestive of atelectasis versus pneum onia. Vague opacity in the right mid zone most likely summation shadow. Follow-up in 3 months advised.
== END 2024-09-07 12:27 | disposition home or self-care (01) ==
PROVIDERS: PCP Family Medicine Adolescent Medicine; Visit Provider Family Medicine Adolescent Medicine
DX: R91.8 Other nonspecific abnormal finding of lung field (principal)
CPT/HCPCS: 71046

== ENCOUNTER 2025-09-18 08:56 | Outpatient (CLI) | payer MEDICARE, SELFPAY ==
--- OUTSIDE RECORDS SUMMARY | 2025-09-18 09:32 | XMS_ITS | Clinical Summary ---
Author Organization [facility] Address Formerly [facility] [place] [address] Care Team Providers Care District Administrator Name Role Phone Unavailable Primary Care Provider Unavailabl e Social History Tobacco Use Types Packs/Day Years Used Date Smoking Tobacco: Never Assessed Sex and Gender Information Value Date Recorded Sex Assigned at Not on file Legal Sex Male 4:22 PM CDT Gender Identity Not on file Sexual Orientation Not on file Plan of Treatment Health Maintenance Due Date Last Done Comments DTaP, Tdap and Td Vaccines ( 1 - Tdap) 1963 Pneumococcal Vaccine: 50+ Ye ars (1 of 1 - PCV) 1994 Zoster Vaccines (1 of 2) 1994 RSV Immunization or 60+ Years (1 - 1-dose 75+ series) 2019 COVID-19 Vaccine ( - 2024-2 6 season) 2025 Influenza Adult (#1) 2025 Hepatitis A Vaccines Aged Out No long er eligible based on patient's age to complete this topic Meningococcal B Vaccine Aged Out No l onger eligible based on patient's age to complete this topic Meningococcal Vaccine Aged Out No emily evy eligible based on patient's age to complete this topic RSV Immunizations Under 20 Months Aged Out No longer eligible based on patient's age to complete this topic
--- OUTSIDE RECORDS SUMMARY | 2025-09-18 09:32 | XMS_ITS | Clinical Summary ---
Author Organization [facility] Address [address] [place] [phone] Phone Care Team Providers Care Meat And Seafood Manager Name Role Phone Andres Simpson MD Primary Care Provider Allergies No known active allergies Medications atorvastatin (LIPITOR) 80 MG tablet One tablet daily 0 7 Active testosterone cypionate (DEPO-TESTOTERO NE) 200 MG/ML injection Once a month 0 7 Active nitroglycerin (NITROSTAT) 0.4 MG SL tablet as needed 0 7 Active QUEtiapine (SEROquel) 50 MG tablet One tab daily, total 250mg daily 0 8 Active cyanocobalamin (VITAMIN B-12) 1000 MCG/ML injection Once a month 0 7 Active QUEtiapine (SEROquel) 200 MG tablet One tablet daily, total 250mg daily 0 7 Active allopurinol (ZYLOPRIM) 300 MG tablet One tablet daily 0 7 Active PARoxetine (PAXIL) 40 MG tablet One tablet daily 0 7 Active buPROPion SR (WELLBUTRIN SR) 200 MG 12 hr tablet One tablet daily 0 7 Active Insulin NPH Isophane & Regular (NOVOLIN 70/30 RELION SC) Inject under the skin Take 22 units in the morning, and 14 units in the evning Active Melatonin 10 MG tablet Take 10 mg by mouth at bed time Active metFORMIN (GLUCOPHAGE) 500 MG tablet Take 500 mg by mouth 1 tab in the morning and 2 tab in the evening Active cholestyramine light 4 g packet Take 4 g by mouth at bed time Active furosemide (LASIX) 20 MG tablet Take 20 mg by mouth 1 (one) time each day Active lisinopril (PRINIVIL) 20 MG tablet Take 20 mg by mouth 1 (one) time each day Active tamsulosin (Flomax) 0.4 MG 24 hr capsule Take 0.4 mg by mouth 1 (one) time each day Active aspirin (ST MICKEY) 81 MG EC tablet Take 81 mg by mouth 1 (one) time each day Active ergocalciferol (VITAMIN D-2) 1.25 MG (92135 UT) capsule Take 50,000 Units by mouth every 30 (thirty) days Active metoprolol succinate XL (TOPROL-XL) 50 MG 24 hr tablet Take 50 mg by mouth 1 (one) time each day Active doxazosin (CARDURA) 1 MG tablet Take 2 tablets (2 mg total) by mouth every night 180 tablet 1 5 02/27/20 26 Active doxazosin (CARDURA) 1 MG tablet Take 2 tablets (2 mg total) by mouth every night 60 tablet 5 08/30/20 25 Discontinu ed(Reorder ) Active Problems Problem Noted Date Diagnosed Date Obstructive sleep apnea syndrome 12/14/2023 Nephrolithiasis 12/14/2023 Nonrheumatic aortic valve stenosis 11/23/2017 Essential (primary) hypertension 11/23/2016 Nephrolithiasis 11/17/2016 Personal history of other malignant neoplasm of colon 11/17/2016 Coronary arteriosclerosis 11/17/2016 Chronic kidney disease stage 2 11/17/2016 Type 2 diabetes mellitus without complication Resolved Problems Problem Noted Date Diagnosed Date Resolved Date Gout 11/23/2016 04/12/2022 Encounters Date Type Department Care Team Description 08/30/2025 Refill [facility] [address] [facility] [address] [place] [address] Rosie Sherman MA 08/05/2025 Refill [facility] [address] [facility] [address] [place] [address] Rosie Sherman MA 07/04/2025 Refill [facility] [address] [facility] [address] [place] [address] Aurora Aldridge RN from Last 3 Months Immunizations Immunization Administration Dates Next Due Influenza TIV (IM) 07/08/2015 Family History Medical History Relation Comments Cancer Father Malignant neoplastic disease Father Diabetes Mother Diabetes mellitus Mother Kidney disease Neg Hx Relation Status Comments Father Mother Social History Tobacco Use Types Packs/Day Years Used Date Smoking Tobacco: Former Cigarettes Q uit: 11/07/1985 Smokeless Tobacco: Never Alcohol Use Standard Drinks/Week Comments Yes 0 (1 standard drink = 0.6 oz pure alcohol) Alcoholic Drinks/day: occasionally Sex and Gender Information Value Date Recorded Sex Assigned at Not on file Legal Sex Male 8:35 AM MST Gender Identity Not on file Sexual Orientation Not on file Last Filed Vital Signs Vital Sign Reading Time Taken Comments Blood Pressure 147/63 05/01/2025 3:27 PM CDT Pulse 69 05/01/2025 3:27 PM CDT Temperature 36.5 C (97.7 F) 10/14/2021 9:33 AM [employer] Respiratory Rate - - Oxygen Saturation - - Inhaled Oxygen Concentration - - Weight 103 kg (226 lb) 05/01/2025 3:27 PM CDT Height 185.4 cm (6' 1) 05/01/2025 3:27 PM CDT Body Mass Index 29.82 05/01/2025 3:27 PM CDT Plan of Treatment Upcoming Encounters Date Type Department Care Team (Late st Contact Info) Description 10/16/2025 2:40 PM [employer] Office Visit [facility] [address] [facility] [address] [place] [address] Roderick Marshall MD [address] [place] [address] [phone] Health Maintenance Due Date Last Done Comments Diabetic Foot Exam 1954 Ophthalmology Exam 1955 Pneumococcal PPSV23/PCV13 65 + Years / High and Highest Risk (2 of 4 - PPSV23, PCV20, or PCV21) 11/13/2015 09/18/2015, 2009 Influenza Vaccine (#1) 2025 0, 08/25/2018, 06/07/2018, Additional [place] [id number] [employer] Care Teams Meat And Seafood Manager Relationship Specialty Start Date End Date Andres Simpson MD [address] [id number] PCP - General Family Medicine 02/06/19
--- OUTSIDE RECORDS SUMMARY | 2025-09-18 09:32 | XMS_ITS | Clinical Summary ---
Author Organization [facility] [address] [place] [address] Care Team Providers Care Hvac Design Mechanical Engineer Name Role Phone Andres Lindquist MD Primary Care Prov ider José Luis Rey DO Unavailable [phone] German Cramer MD Unavailable [phone] German Solomon MD Unavailable [phone] Allergies Active Allergy Reactions Criticality Noted Date Comments Mold Cough High 12/26/2023 Ragweed Pollen Sneezing High 12/26/2023 Medications testosterone cypionate (DEPO-TESTOTE AJAY) 200 mg/mL injection inject 0.25 milliliter (50MG) by intramuscular route every 4 weeks 0 06/22/20 12 Active PARoxetine (PAXIL) 40 mg tablet take 1 tablet (40MG) by oral route every day 0 06/22/20 12 Active nitroglycerin (NITROSTAT) 0.[address] 1 tablet (0.4MG) by sublingual route at the 1st sign of attack; may repeat every 5 min until relief; if pain persists after 3 tablets in 15 min, prompt medical attention is recommended 0 06/22/20 12 Active allopurinol (ZYLOPRIM) 300 mg tablet take 1 tablet (300MG) by oral route every day 0 06/22/20 12 Active buPROPion SR (WELLBUTRIN SR) 200 mg 12 hr tablet take 1 tablet (200MG) by oral route every day 0 06/22/20 12 Active atorvastatin (LIPITOR) 80 mg tablet take 1 tablet by oral route every day 0 0 06/27/20 14 Active melatonin 10 mg tablet Take by mouth Active NovoLIN N NPH U-100 Insulin 100 unit/mL injection 22units in the a.m and 10 units in the p.m. 11/30/19 20 Active QUEtiapine (SEROquel) 200 mg tablet Take 1 tablet (200 mg total) by mouth nightly Active cholestyramin e light 4 gram packet 12/17/19 23 Active tamsulosin (FLOMAX) 0.4 mg extended release capsule Take 1 capsule (0.4 mg total) by mouth daily 01/18/20 23 Active metFORMIN XR (GLUCOPHAGE XR) 500 mg 24 hr tablet 01/22/20 23 Active QUEtiapine (SEROquel) 50 mg tablet Take 1 tablet (50 mg total) by mouth nightly 12/27/19 23 Active aspirin 81 mg chewable tablet Take 1 tablet (81 mg total) by mouth daily 04/17/20 23 Active amoxicillin (AMOXIL) 500 mg tablet/capsul e Take 4 caps (2000 mg) 1 hour prior to procedure. 4 tablet/caps ule 3 08/02/20 23 Active ergocalcifero l (VITAMIN D) 50,000 unit capsule Take 1 capsule (50,000 Units total) by mouth once a week Active furosemide (LASIX) 20 mg tablet TAKE 1 TABLET BY MOUTH ONCE DAILY 90 tablet 3 11/28/19 25 Active doxazosin (CARDURA) 1 mg tablet Take 1 tablet (1 mg total) by mouth nightly Active cyanocobalami n (Vitamin B-12) 1,000 mcg/mL injection Active lisinopriL (PRINIVIL,ZES TRIL) 10 mg tablet TAKE 2 TABLETS BY MOUTH DAILY 180 tablet 2 08/28/20 25 Active metoprolol XL (TOPROL-XL) 50 mg extended release tablet TAKE 1 TABLET BY MOUTH DAILY 90 tablet 3 09/16/20 25 Active lisinopriL (PRINIVIL,ZES TRIL) 10 mg tablet TAKE 2 TABLETS BY MOUTH DAILY 180 tablet 2 11/28/19 25 025 Discontinued metoprolol XL (TOPROL-XL) 50 mg extended release tablet Take 1 tablet (50 mg total) by mouth daily 90 tablet 2 01/23/20 25 025 Discontinued Active Problems Problem Noted Date Diagnosed Date Shayan 08/01/2025 Vitamin B12 deficiency anemi a due to intrinsic factor deficiency 08/01/2025 Ventral hernia 08/01/2025 Unilateral primary osteoarthritis, left knee Trigger finger, left ring finger 08/01/2025 Testicular hypofunction 08/01/2025 Seborrheic dermatitis 08/01/2025 Schizophrenia 08/01/2025 Pneumonia 08/01/2025 Pleural thickening 08/01/2025 Head injury 08/01/2025 Fracture of lunate 08/01/2025 Fall from ladder 08/01/2025 Exertional dyspnea 08/01/2025 Diastolic heart failure 08/01/2025 Depression with anxiety 08/01/2025 Chronic diarrhea 08/01/2025 Bilateral primary osteoarthritis of knee 025 Benign prostatic hyperplasia 08/01/2025 Atrial fibrillation 08/01/2025 Acquired absence of right finger(s) 08/01/2025 S/P TAVR (transcatheter aortic valve replacement ) 07/14/2023 Assessment & Plan (04/27/2024 1:33 PM CDT): S/p TAVR 1 year ago. The valve is functioning well. No additional TAVR follow up scheduled at this time. Aortic stenosis 04/15/2023 Encounter for examination fo r normal comparison and control in clinical research program 03/23/2023 History of colon cancer 01/19/2019 Coronary artery disease invo lving wales coronary artery of wales heart without angina pectoris 10/11/2017 Hx of CABG 10/11/2017 Nonrheumatic aortic valve stenosis 10/11/2017 Assessment & Plan (05/24/2023 2:52 PM CDT): S/p TAVR 1 month ago. The valve is functioning well. We will plan to see the patient back for 1 year TAVR follow up. Gout 11/23/2016 Essential (primary) hypertension 11/23/2016 Type 2 diabetes mellitus without complication Stage 1 chronic kidney disease 11/17/2016 Encounters Date Type Department Care Team Description 08/01/2025 9:45 AM CDT Office Visit [facility] [address] [place] [address] German Cramer MD S/P TAVR (transcatheter aortic valve replacement) (Primary Dx); Longstanding persistent atrial fibrillation (HCC) 07/04/2025 Telephone [facility] [address] [place] [address] German Cramer MD from Last 3 Months Immunizations Immunization Administration Dates Next Due Influenza, Unspecified 11/24/2019,08/25/2018 Surgical History Surgery Date Site/Laterality Comments COLON SURGERY 11/07/2000 - 11/06/2001 [facility] - [place], [place] partial resection d/t colon ca COLONOSCOPY APPENDECTOMY CHOLECYSTECTOMY 07/08/1986 - 08/06/1986 HERNIA REPAIR CORONARY ARTERY BYPASS GRAFT 11/07/2009 - 11/06/2010 x [address] [facility] [address] Lopes CATARACT EXTRACTION Bilateral 01/09/21 & 02/12/21 [place], [place] LITHOTRIPSY 11/07/1992 - 11/06/1993 [facility] AORTIC VALVE REPLACEMENT 04/15/2023 TAVR- 26 [facility] Medical History Medical History Date Comments Colon cancer (HCC) 2000 Diabetes mellitus Hypertension Hypercholesteremia Aortic stenosis Sleep apnea Family History Medical History Relation Name Comments Cancer Father Coronary artery disease Father Jennifer nary Artery Disease; Hypertension Father Cancer Mother Hypertension Mother Lung cancer Sister Relation Name Status Comments Father Alive Mother Sister Social History Tobacco Use Types Packs/Day Years Used Date Smoking Tobacco: Former Cigarettes 2 15 1 971 - 1985 Smokeless Tobacco: Never Tobacco Cessation:Counseling Given: Not Answered Alcohol Use Standard Drinks/Week Comments Not Currently 0 (1 standard drink = 0.6 oz pur e alcohol) AUDIT-C Answer Date Recorded Q1: How often do you have a drink containing alcohol? Never 04/15/2023 Q2: How many drinks containi ng alcohol do you have on a typical day when you are drinking? Patient does not drink Q3: How often do you have si x or more drinks on one occasion? Never 04/15/2023 Personal Safety Answer Date Recorded Have you ever been in or are you currently in a harmful physical or emotional relationship or is someone making you feel afraid or unsafe? Denies 04/15/2023 Sex and Gender Information Value Date Recorded Sex Assigned at Not on file Legal Sex Male 12:38 PM ANIMAL CARE PROVIDER Gender Identity Not on file Sexual Orientation Not on file Last Filed Vital Signs Vital Sign Reading Time Taken Comments Blood Pressure 132/80 08/01/2025 9:32 AM CDT Pulse 88 08/01/2025 9:32 AM CDT Temperature 36.8 C (98.3 F) 04/16/2023 7:00 AM CDT Respiratory Rate 16 04/27/2024 1:31 PM CDT Oxygen Saturation 95% 08/01/2025 9:32 AM CDT Inhaled Oxygen Concentration - - Weight 103.7 kg (228 lb 11.2 oz) 08/01/2025 9:32 AM CDT Height 185.4 cm (6' 1) 08/01/2025 9:32 AM CDT Body Mass Index 30.17 08/01/2025 9:32 AM CDT Plan of Treatment Health Maintenance Due Date Last Done Comments Albumin Creatinine Ratio, Urine 1944 Depression Screening 1944 Hemoglobin A1C 1944 Dilated Eye Exam 1944 Foot Exam 1944 Hepatitis B Screening 1962 Abdominal Aortic Aneurysm (A AA) Screen 2009 Well Visit 65+ 2009 Lipid Panel 03/08/2024 03/08/2023, 1203/2017, 10/16/2016 Fall Risk Assessment 04/16/2024 04/16/2023 eGFR 04/16/2024 04/16/2023, 0607/2023, 03/08/2023, Additional history exists Covid-19 Vaccine (4 - 2024-2 6 season) 2025 04/20/2022, 09/22/2021, 01/09/2021 Influenza Vaccine (#1) 2025 , 08/16/2022, 07/14/2021, Additional history exists DTaP/Tdap/Td Vaccine (3 - Td or Tdap) 04/19/2034 04/19/2024, 02/09/2022 Pneumococcal vaccine 65+ Completed 018, 09/18/2015, 2009 Zoster Vaccine Completed 04/13/2022, 02/09/2022 Medical Devices Implanted Type Area 8Th Grade Mathematics Teacher Device Identifier Shelf Expiration Date Model / Serial / Lot [place] [employer] Valve Heart 26mm Jenni 3 Transcatheter [id number] - [id number] - [id number] Implanted:Qty: 1 on 04/15/2023 by Dre Hay MD at [facility] Prosthetic Valve [employer] 12/17/2025 [id number] / [id number] / [employer] 18f Manta Vascular Closure Device 2115 - S0 - [id number] Implanted:Qty: 1 on 04/15/2023 by Dre Hay MD at [facility] Vascular Closure Device Right: Femoral [employer] 07/09/2024 2115 / 0 / [id number] [employer] Device Vascular Closure Femoral Artery Bioabsorbable Dual Method Vascade 6-7fr Collagen [id number] - S0 - [id number] Implanted:Qty: 1 on 04/15/2023 by Dre Hay MD at [facility] Vascular Closure Device Left: Femoral [employer] 12/09/2024 [id number] / 0 / [id number] Procedures Procedure Name Priority Date/Time Associated Diagnosis Comments EGFR Routine 04/16/2023 12:24 AM CDT LIPID PANEL Routine 03/08/2023 1:51 PM CDT Coronary artery disease involving wales coronary artery of wales heart without angina pectoris from Last 3 Months or Most Recently Relevant to Health Maintenance Results * eGFR (04/16/2023 12:24 AM CDT) eGFR 84 mL/min/1. 73 m2 [facility] Comment: Interpretive Data Reference Interval Normal >/= 90 mL/min/1.73m2 Mildly decreased* 60 - 89 mL/min/1.73m2 Mildly to moderately decreased 45 - 59 mL/min/1.73m2 Moderately to severely decreased 30 - 44 mL/min/1.73m2 Severely decreased 15 - 29 mL/min/1.73m2 Kidney Failure < 15 mL/min/1.73m2 *Relative to young adult level Estimated glomerular filtration rate is determined by the 2020 CKD-EPI equation recommended by the National Kidney Foundation (A Unifying Approach to GFR Estimation: Recommendations of the NKF-ASK Task Force on Reassessing the Inclusion of Race in Diagnosing Kidney Disease, JASN 202). The CKD-EPI equation should not be used for patients with unstable renal function and has not been validated in children and those over 70. Current interpretive data was last reviewed 2021. Blood 04/16/2023 12:2 4 AM CDT 04/16/2023 12:40 AM CDT us Porfirio SHAH LAB BLOOD ORDERABLES Final R esult [facility] [address] [place] [address] * (ABNORMAL) Lipid panel (03/08/2023 1:51 PM CDT) Cholesterol 87 30 - 199 mg/dL [facility] Comment: Interpretive Data Ages < or = 19 years Acceptable: <170 mg/dL Borderline high: 170-199 mg/dL High: >or= 200 mg/dL Ages > or = 20 years Desirable: <200 mg/dL Borderline high: 200-239 mg/dL High: >or= 240 mg/dL Literature References: 1. Expert Panel on Integrated Guidelines for Cardiovascular Health and Risk Reduction in Children and Adolescents. Pediatrics 2011;128:S213 2. NCEP Expert Panel. Circulation 2004;110:227 Current Interpretive Data was last revised on 2018. Triglycerides 57 <=149 mg/dL [facility] Comment: Interpretive Data Ages < or = 9 years Acceptable: <75 mg/dL Borderline high: 75-99 mg/dL High: >or= 100 mg/dL Ages 10 to 20 years Acceptable: <90 mg/dL Borderline high: 90-129 mg/dL High: >or= 130 mg/dL Ages > or = 20 years Desirable: <150 mg/dL Borderline high: 150-199 mg/dL High: 200-499 mg/dL Very high: >or= 499 mg/dL Literature References: 1. Expert Panel on Integrated Guidelines for Cardiovascular Health and Risk Reduction in Children and Adolescents. Pediatrics 2011;128:S213 2. NCEP Expert Panel. Circulation 2004;110:227 Current Interpretive Data was last revised on 2018. HDL 35(L) >=40 mg/dL [facility] Comment: Interpretive Data Ages < or = 19 years Acceptable: >45 mg/dL Borderline low: 40-45 mg/dL Low: <40 mg/dL Ages > or = 20 years Desirable: >or= 60 mg/dL Low: <40 mg/dL Literature References: 1. Expert Panel on Integrated Guidelines for Cardiovascular Health and Risk Reduction in Children and Adolescents. Pediatrics 2011;128:S213 2. NCEP Expert Panel. Circulation 2004;110:227 Current Interpretive Data was last revised on 2018. LDL, calculated 41 <=129 mg/dL [facility] Comment: Interpretive Data Ages < or = 19 years Acceptable: <110 mg/dL Borderline high: 110-129 mg/dL High: >or= 130 mg/dL Ages > or = 20 years Optimal: <100 mg/dL Near optimal: 100-129 mg/dL Borderline high: 130-159 mg/dL High: >160 mg/dL Literature References: 1. Expert Panel on Integrated Guidelines for Cardiovascular Health and Risk Reduction in Children and Adolescents. Pediatrics 2011;128:S213 2. NCEP Expert Panel. Circulation 2004;110:227 Current Interpretive Data was last revised on 2018. Non-HDL Cholesterol 52 mg/dL [facility] Comment: Interpretive Data Ages < or = 19 years Acceptable: <120 mg/dL Borderline high: 120-144 mg/dL High: >145 mg/dL Ages > or = 20 years When triglycerides are >200 mg/dL, Non-HDL cholesterol is a secondary target of therapy with treatment goals that are 30 mg/dL greater than the LDL cholesterol target. Literature References: 1. Expert Panel on Integrated Guidelines for Cardiovascular Health and Risk Reduction in Children and Adolescents. Pediatrics 2011;128:S213 2. NCEP Expert Panel. Circulation 2004;110:227 Current Interpretive Data was last revised on 2018. Chol/HDL ratio 2 [facility] Blood 03/08/2023 1:51 PM CDT 03/08/2023 2:09 PM CDT us Dre Bharti ALVARADO LAB BLOOD ORDERABLES Final Resul t [facility] [address] [place] [address] from Last 3 Months or Most Recently Relevant to Health Maintenance Insurance MEDICARE [facility] SENIOR SUPPLEMENT MEDICARE AET SENIOR SUPPLEMENT MEDICARE [employer] SENIOR SUPPLEMENT Advance Directives For more information, please contact: [phone] Documents on File Type Date Recorded Patient Social Director Expl anation Power of Health Diagnostics Teacher 03/08/2023 11:29 AM * Full Code (Latest Code Status on File) Date Activated Date Inactivated Comments 04/15/2023 6:22 AM 04/16/2023 8:04 PM Care Teams Hvac Design Mechanical Engineer Relationship Specialty Start Date End Date Andres Lindquist MD PCP - General 02/04/17 José Luis Rey DO Medical Oncologist/Brick Unloader Tender Hematology and Oncology 02/19/21 German Cramer MD [address] [facility] [address] [place] [address] Referring Physician Cardiology 02/22/23 German Solomon MD [address] [facility] [address] [place] [address] Consulting Physician Cardiothoracic Surgery 02/22/23
--- OUTSIDE RECORDS SUMMARY | 2025-09-18 09:32 | XMS_ITS | Clinical Summary ---
Author Organization [facility] Address [address], [address] [address] Phone Care Team Providers Care Hand Woodworking Sander Name Role Phone Andres Lindquist MD Primary Care Provider + Darrell Young DO Unavailable [phone] Allergies No known active allergies Medications insulin glargine (LANTUS) 100 UNIT/ML Solution 28 Units by Subcutaneous route nightly. Active cyanocobalamin (VITAMIN B-12) 1000 MCG/ML Solution by Intramuscular route every 30 days. Active TESTOSTERONE TD 200 mg by Transdermal route every 30 days. Active Ergocalciferol (VITAMIN D2 PO) Take 50,000 Units by mouth once a week. Active metFORMIN (GLUCOPHAGE) 500 MG Tablet Take 1,000 mg by mouth 2 times daily (with meals). Active allopurinol (ZYLOPRIM) 300 MG Tablet Take 300 mg by mouth daily. Active atorvastatin (LIPITOR) 80 MG Tablet Take 80 mg by mouth daily. Active BuPROPion HCl 200 MG TABLET SR 12 HR Take 200 mg by mouth daily. Active QUEtiapine (SEROQUEL) 200 MG Tablet Take 200 mg by mouth nightly. Active lithium 300 MG Capsule Take 300 mg by mouth nightly. Active PARoxetine (PAXIL) 40 MG Tablet Take 40 mg by mouth daily. Active lisinopril (PRINIVIL, ZESTRIL) 20 MG Tablet Take 20 mg by mouth daily. Active aspirin EC 81 MG Tablet Delayed Response Take 81 mg by mouth daily. Active Nitroglycerin (NITROSTAT SL) by Sublingual route. Every 5 minutes as needed Active Immunizations Immunization Administration Dates Next Due Covid-19 Vaccine, Vector-nr, Rs-ad26, Pf, 0.5 Ml (NOEL/J&J) 01/09/2021 Family History Medical History Relation Name Comments Congestive Heart Failure Father Lung Cancer Father Cancer Sister brain cancer Relation Name Status Comments Father Sister Social History Tobacco Use Types Packs/Day Years Used Date Smoking Tobacco: Former Cigarettes 1.5 18 Smokeless Tobacco: Never Alcohol Use Standard Drinks/Week Comments Yes 0 (1 standard drink = 0.6 oz pur e alcohol) Sex and Gender Information Value Date Recorded Sex Assigned at Not on file Legal Sex Male 7:28 PM CDT Gender Identity Not on file Sexual Orientation Not on file Plan of Treatment Health Maintenance Due Date Last Done Comments Hepatitis C Virus (HCV) Screening 1945 TdaP Immunization 1945 Pneumococcal Immunization (5 0+ years) (1 of 1 - PCV) 1994 Zoster Immunization (1 of 2) 1994 Medicare Initial AWV [id number] 07/08/2010 Respiratory Syncytial Virus (RSV) Immunization (Adult) (1 - 1-dose 75+ series) 2019 Influenza Immunization (#1) 07/08/202511/07, 08/07/2019, 11/07/2016 SARS-COV-2 Immunization ( season) 2025 04/20/2022, 09/22/2021, 01/09/2021 Colonoscopy Discontinued 05/06/2016 Colorectal Cancer Screening Discontinued Cologuard Discontinued Hepatitis B Immunization Aged Out No longer eligible based on patient's age to complete this topic Human Papillomavirus (HPV) Immunization Aged Out No longer eligible based on patient's age to complete this topic Immunochemical Fecal Occult Blood Discontinued Meningococcal Immunization (ACWY) Aged Out No longer eligible based on patient's age to complete this topic Rotavirus Immunization Aged Out No lo nger eligible based on patient's age to complete this topic Procedures Procedure Name Priority Date/Time Associated Diagnosis Comments COLONOSCOPY Routine 05/06/2016 from Last 3 Months or Most Recently Relevant to Health Maintenance Results * COLONOSCOPY (05/06/2016) Andres Lindquist MD PROCEDURE/MINOR SURGICAL ORDERABLES Final Result from Last 3 Months or Most Recently Relevant to Health Maintenance Insurance MEDICARE Care Teams Hand Woodworking Sander Relationship Specialty Start Date End Date Andres Lindquist MD PCP - General Family Medicine 05/12/16 Darrell Young DO Gastroenterology 05/12/16
--- OUTSIDE RECORDS SUMMARY | 2025-09-18 09:32 | XMS_ITS | Patient Health Record ---
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 Service Name Role Phone Andres Lindquist MD Primary Care Provider Rebel Donahue Unavailable [phone] Allergies No Known Allergies Reason For Referral No Information Medications Medication SIG (Take, Route, Frequency, Duration) Notes Start Date End Date Status Allopurinol 300 MG Tablet Oral 02/13/2024 Active Furosemide 20 MG Tablet Oral 02/13/2024 Active Nitroglycerin 0.4 MG Tablet Sublingual Sublingual 02/13/2024 Active Vitamin D (Ergocalciferol) 1.25 MG (43303 UT) Capsule TAKE 1 CAPSULE BY MOUTH ONCE WEEKLY Orally once monthly; Duration: 90 days 09/09/2025 Active Tamsulosin HCl 0.4 MG Capsule Oral 02/13/2024 Active Ketorolac Tromethamine 0.5 % Solution Ophthalmic 02/13/2024 Active buPROPion HCl ER (SR) 200 MG Tablet Extended Release 12 Hour 1 tablet in the morning Oral Once a day; Duration: 90 days 09/09/2025 Active NovoLIN N 100 UNIT/ML Suspension Subcutaneous 02/13/2024 Active QUEtiapine Fumarate 50 MG Tablet 1 tablet at bedtime Oral Once a day; Duration: 90 days 09/09/2025 Active Atorvastatin Calcium 80 MG Tablet Oral 02/13/2024 Active PARoxetine HCl 40 MG Tablet 1 tablet Oral Once a day; Duration: 90 days Not-Taking metFORMIN HCl ER 500 MG Tablet Extended Release 24 Hour Oral 02/13/2024 Not-Taking Lisinopril 10 MG Tablet Oral 02/13/2024 Not-Taking QUEtiapine Fumarate 200 MG Tablet TAKE 1 TABLET BY MOUTH ONCE DAILY; Duration: 90 Active Metoprolol Succinate ER 50 MG Tablet Extended Release 24 Hour Oral; Duration: 90 Days Active Cyanocobalamin 1000 MCG/ML Solution 1 mL Injection EVERY MONTH 02/13/2024 Active buPROPion HCl ER (SR) 200 MG Tablet Extended Release 12 Hour TAKE 1 TABLET BY MOUTH IN THE MORNING ONCE DAILY; Duration: 90 Active Cholestyramine Light 4 GM Packet Oral 02/13/2024 Active QUEtiapine Fumarate 50 MG Tablet TAKE 1 TABLET BY MOUTH AT BEDTIME ONCE DAILY; Duration: 90 Not-Taking Triamcinolone Acetonide 0.1% Cream External 02/13/2024 Active INSULIN SYRINGE U-100 WITH NEEDLE 1 ML 31 GAUGE X 15/64 *Reorder from [employer] for eRx and Interaction Alerts* 02/13/2024 Active Melatonin 10 MG Capsule Oral 02/13/2024 Active RELION INSULIN SYRINGE 1ML/31GX15/6 4 31G X 15/64 1 ML MISC *Reorder from [employer] for eRx and Interaction Alerts* 02/13/2024 Active OneTouch Ultra Strip In Vitro 02/13/2024 Active metFORMIN HCl 500 MG Tablet Oral 02/13/2024 Active Ketoconazole 2% Cream External 02/13/2024 Active Lisinopril 20 MG Tablet Oral 02/13/2024 Active Testosterone Cypionate 200 MG/ML Solution Intramuscular 02/13/2024 Active PARoxetine HCl 40 MG Tablet 1 tablet in the morning Oral Once a day; Duration: 90 days 09/09/2025 Active QUEtiapine Fumarate 200 MG Tablet 1 tablet Oral Once a day; Duration: 90 days 09/09/2025 Active Immunizations Vaccine Route Administration Date Status Comme nts Influenza virus vaccine, quadrivalent (IIV4), split virus, 0.25 mL dosage Unknown 11/07/2016 Administered Influenza virus vaccine, quadrivalent (IIV4), split virus, 0.25 mL dosage Unknown 08/07/2019 Administered Influenza, seasonal, injecta ble, preservative free, 3 yrs and above Unknown 07/08/2015 Administered Influenza, unspecified formulation Unknown 06/07/2018 A dministered Influenza, unspecified formulation Unknown 08/25/2018 A dministered Influenza, unspecified formulation Unknown 11/24/2019 A dministered Sylvester Covid-19 Vaccine Unknown 01/09/2021 Administere d Moderna Covid-19 Vaccine 1st dose Unknown 09/22/2021 Ad ministered Moderna Covid-19 Vaccine 1st dose Unknown 04/20/2022 Ad ministered Pneumococcal conjugate PCV 13 Unknown 2009 Admini stered Social History Sex Assigned At : Social History Observation Description Sex Assigned At Male Social History Additional Details Category Social Info Options Details Migrated Social History Migrated Social History Alcohol Intake: None 09/04/2018,Tobacco Years: Never smoker 09/04/2018,Smoking Status: 0 07/18/2023 Problems Problem Type SNOMED Code ICD Code Onset Dates Problem Status W/U Status Risk Notes Problem Vitamin D deficiency (06987418) Vitamin D deficiency, unspecified (E55.9) Active confirmed Problem Bipolar II disorder (96525828) Bipolar II disorder (F31.81) Active confirmed Problem Generalized anxiety disorder (73557782) Generalized anxiety disorder (F41.1) Active confirmed Problem Insomnia (288823049) Other insomnia (G47.09) Active confirmed Problem Obsessive compulsive disorder (433183189) Other obsessive-compu lsive disorder (F42.8) Active confirmed Vital Signs Heart Rate 70 /min 06/10/2025 Height-cm 186.69 cm 06/10/2025 Blood pressure diastolic 70 mm Hg 06/10/2025 Weight-kg 101.15 kg 06/10/2025 Height 73.50 in 06/10/2025 Blood pressure systolic 128 mm Hg 06/10/2025 Weight 223.0 lbs 06/10/2025 BMI 29.02 kg/m2 06/10/2025 Encounters Encounter Location Date Provider Diagnosis [facility] [facility] [address] [facility] [address] [address] 09/19/2024 Rebel Jiménez Vitamin D deficiency , unspecified E55.9 ; Bipolar II disorder F31.81 ; Other obsessive-compulsive disorder F42.8 ; Generalized anxiety disorder F41.1 and Other insomnia G47.09 [facility] [employer] [facility] [address] [facility] [address] [address] 12/18/2024 Rebel Jiménez Vitamin D deficiency , unspecified E55.9 ; Bipolar II disorder F31.81 ; Other obsessive-compulsive disorder F42.8 ; Generalized anxiety disorder F41.1 and Other insomnia G47.09 [facility] [address] [place] [address] 03/12/2025 Rebel Jiménez Negative depression screening Z13.31 ; Bipolar II disorder F31.81 ; Other obsessive-compulsive disorder F42.8 ; Generalized anxiety disorder F41.1 ; Encounter for screening for cardiovascular disorders Z13.6 ; Vitamin D deficiency, unspecified E55.9 and Other insomnia G47.09 [facility] [place] [address] [place] [address] 06/10/2025 Rebel Jiménez Bipolar II disorder F31.81 ; Other obsessive-compulsive disorder F42.8 ; Generalized anxiety disorder F41.1 ; Vitamin D deficiency, unspecified E55.9 and Other insomnia G47.09 [place] [address] [place] [address] 09/09/2025 Rebel Jiménez Bipolar II disorder F31.81 ; Other obsessive-compulsive disorder F42.8 ; Generalized anxiety disorder F41.1 ; Vitamin D deficiency, unspecified E55.9 and Other insomnia G47.09 Assessments Encounter Date Diagnosis (ICD Code) Assessment Notes Treatment Notes Treatment Clinical Notes Section Notes 09/19/2024 Vitamin D deficiency, unspecified (ICD-10 - E55.9) He Attends [facility] in [place] He uses medication meeting planner for medication weekly 1. Bipolar disorder: - Patient is currently taking quetiapine 200 mg at bedtime, paroxetine 40 mg daily, quetiapine 50 mg, and bupropion. Reports no significant depressive symptoms. Plan: - Continue current medications. Monitor for any changes in mood or behavior. Follow up in 3 months or sooner if needed. 2. Vitamin D supplementation: - Patient is currently taking vitamin D supplements. Plan: - Continue vitamin D supplementation as prescribed. Reevaluate levels as needed. 3. Medication refills: - Patient confirms using [facility] for medication refills. Plan: - Refill prescriptions for quetiapine, paroxetine, bupropion, and vitamin D through [facility]. 12/18/2024 Vitamin D deficiency, unspecified (ICD-10 - E55.9) He Attends [facility] in [place] He uses medication meeting planner for medication weekly 03/12/2025 Bipolar II disorder (ICD-10 - F31.81) He Attends [facility] in [place] He uses medication meeting planner for medication weekly 03/12/2025 Negative depression screening (ICD-10 - Z13.31) He Attends [facility] in [place] He uses medication meeting planner for medication weekly 06/10/2025 Bipolar II disorder (ICD-10 - F31.81) He Attends [facility] in [place] He uses medication meeting planner for medication weekly 06/10/2025 Other obsessive-compul sive disorder (ICD-10 - F42.8) stable He Attends [facility] in [place] He uses medication meeting planner for medication weekly 09/09/2025 Bipolar II disorder (ICD-10 - F31.81) He Attends [facility] in [place] He uses medication meeting planner for medication weekly 06/10/2025 Generalized anxiety disorder (ICD-10 - F41.1) stable He Attends [facility] in [place] He uses medication meeting planner for medication weekly 12/18/2024 Bipolar II disorder (ICD-10 - F31.81) He Attends [facility] in [place] He uses medication meeting planner for medication weekly 09/19/2024 Bipolar II disorder (ICD-10 - F31.81) He Attends [facility] in [place] He uses medication meeting planner for medication weekly 1. Bipolar disorder: - Patient is currently taking quetiapine 200 mg at bedtime, paroxetine 40 mg daily, quetiapine 50 mg, and bupropion. Reports no significant depressive symptoms. Plan: - Continue current medications. Monitor for any changes in mood or behavior. Follow up in 3 months or sooner if needed. 2. Vitamin D supplementation: - Patient is currently taking vitamin D supplements. Plan: - Continue vitamin D supplementation as prescribed. Reevaluate levels as needed. 3. Medication refills: - Patient confirms using [facility] for medication refills. Plan: - Refill prescriptions for quetiapine, paroxetine, bupropion, and vitamin D through [facility]. 03/12/2025 Other obsessive-compul sive disorder (ICD-10 - F42.8) stable He Attends [facility] in [place] He uses medication meeting planner for medication weekly 09/09/2025 Other obsessive-compul sive disorder (ICD-10 - F42.8) stable He Attends [facility] in [place] He uses medication meeting planner for medication weekly 12/18/2024 Other obsessive-compul sive disorder (ICD-10 - F42.8) stable He Attends [facility] in [place] He uses medication meeting planner for medication weekly 03/12/2025 Generalized anxiety disorder (ICD-10 - F41.1) stable He Attends [facility] in [place] He uses medication meeting planner for medication weekly 09/19/2024 Other obsessive-compul sive disorder (ICD-10 - F42.8) stable He Attends [facility] in [place] He uses medication meeting planner for medication weekly 1. Bipolar disorder: - Patient is currently taking quetiapine 200 mg at bedtime, paroxetine 40 mg daily, quetiapine 50 mg, and bupropion. Reports no significant depressive symptoms. Plan: - Continue current medications. Monitor for any changes in mood or behavior. Follow up in 3 months or sooner if needed. 2. Vitamin D supplementation: - Patient is currently taking vitamin D supplements. Plan: - Continue vitamin D supplementation as prescribed. Reevaluate levels as needed. 3. Medication refills: - Patient confirms using [facility] for medication refills. Plan: - Refill prescriptions for quetiapine, paroxetine, bupropion, and vitamin D through [facility]. 06/10/2025 Vitamin D deficiency, unspecified (ICD-10 - E55.9) He Attends [facility] in [place] He uses medication meeting planner for medication weekly 09/09/2025 Generalized anxiety disorder (ICD-10 - F41.1) stable He Attends [facility] in [place] He uses medication meeting planner for medication weekly 09/09/2025 Vitamin D deficiency, unspecified (ICD-10 - E55.9) He Attends [facility] in [place] He uses medication meeting planner for medication weekly 06/10/2025 Other insomnia (ICD-10 - G47.09) stable He Attends [facility] in [place] He uses medication meeting planner for medication weekly 03/12/2025 Encounter for screening for cardiovascular disorders (ICD-10 - Z13.6) He Attends [facility] in [place] He uses medication meeting planner for medication weekly 09/19/2024 Generalized anxiety disorder (ICD-10 - F41.1) stable He Attends [facility] in [place] He uses medication meeting planner for medication weekly 1. Bipolar disorder: - Patient is currently taking quetiapine 200 mg at bedtime, paroxetine 40 mg daily, quetiapine 50 mg, and bupropion. Reports no significant depressive symptoms. Plan: - Continue current medications. Monitor for any changes in mood or behavior. Follow up in 3 months or sooner if needed. 2. Vitamin D supplementation: - Patient is currently taking vitamin D supplements. Plan: - Continue vitamin D supplementation as prescribed. Reevaluate levels as needed. 3. Medication refills: - Patient confirms using [facility] for medication refills. Plan: - Refill prescriptions for quetiapine, paroxetine, bupropion, and vitamin D through [facility]. 12/18/2024 Generalized anxiety disorder (ICD-10 - F41.1) stable He Attends [facility] in [place] He uses medication meeting planner for medication weekly 12/18/2024 Other insomnia (ICD-10 - G47.09) stable He Attends [facility] in [place] He uses medication meeting planner for medication weekly 09/19/2024 Other insomnia (ICD-10 - G47.09) stable He Attends [facility] in [place] He uses medication meeting planner for medication weekly 1. Bipolar disorder: - Patient is currently taking quetiapine 200 mg at bedtime, paroxetine 40 mg daily, quetiapine 50 mg, and bupropion. Reports no significant depressive symptoms. Plan: - Continue current medications. Monitor for any changes in mood or behavior. Follow up in 3 months or sooner if needed. 2. Vitamin D supplementation: - Patient is currently taking vitamin D supplements. Plan: - Continue vitamin D supplementation as prescribed. Reevaluate levels as needed. 3. Medication refills: - Patient confirms using [facility] for medication refills. Plan: - Refill prescriptions for quetiapine, paroxetine, bupropion, and vitamin D through [facility]. 03/12/2025 Vitamin D deficiency, unspecified (ICD-10 - E55.9) He Attends [facility] in [place] He uses medication meeting planner for medication weekly 09/09/2025 Other insomnia (ICD-10 - G47.09) stable He Attends [facility] in [place] He uses medication meeting planner for medication weekly 03/12/2025 Other insomnia (ICD-10 - G47.09) stable He Attends [facility] in [place] He uses medication meeting planner for medication weekly 12/18/2024 Other 1. Mood and anger management issues: - Patient reports occasional outbursts of anger and disagreements with his . - Denies experiencing depression or claribel. - History of psychiatric hospitalizations . - Currently on quetiapine for mood stabilization. - Mood appears stable, but continues to have difficulties with anger management. Plan: - Continue quetiapine 200 mg daily and 50 mg daily as prescribed. - Encourage patient to attend therapy or support groups for anger management. - Schedule follow-up appointment in 3 months to reassess mood and anger management progress. 2. Blood pressure: - Patient reports stable blood pressure recently, which he believes indicates overall mood and well-being. Plan: - Encourage patient to continue monitoring blood pressure regularly. - Recommend lifestyle modifications, such as healthy diet and regular exercise, to maintain blood pressure control. 3. Medication management: - Patient currently taking quetiapine for mood stabilization with no reported issues. - Inquires about using [facility] for medication refills. Plan: - Refill quetiapine prescription and send to [facility] as requested by patient. - Encourage patient to continue taking medications as prescribed and report any side effects or concerns. 4. Social support and stress management: - Patient reports long-standing marriage with occasional conflicts. 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 - Acknowledges importance of expressing opinions but struggles with managing anger during disagreements. Plan: - Encourage open communication with and son to address concerns or conflicts. - Recommend stress management techniques, such as deep breathing exercises or mindfulness practices, to help manage anger and improve overall well-being. 5. Follow-up appointment: - Schedule follow-up appointment in 3 months to reassess patient's mood, anger management progress, and overall well-being. He Attends [facility] in [place] He uses medication meeting planner for medication weekly 03/12/2025 Other Ivania Graham, a patient with a history of depression and suicidal ideation, presents for follow-up of his psychiatric conditions, reporting stable mood and no current depressive symptoms. Bipolar Disorder Assessment: Patient reports overall stable mood with no current depressive symptoms. He mentions experiencing occasional bounces that pass quickly, which may indicate mild mood fluctuations. Historical context includes a past episode of severe depression with suicidal ideation, which required psychiatric intervention. No recent manic episodes or severe anxiety reported. Current medication regimen appears to be effectively managing symptoms. Plan: - Continue current medication regimen: - Quetiapine 200 mg + 50 mg PO daily at bedtime - Paroxetine 40 mg PO daily - Bupropion 200 mg PO daily - Follow-up appointment scheduled in 3 months - Patient instructed to wait for call regarding prescription refills Obstructive Sleep Apnea Assessment: Patient reports pretty good sleep overall but mentions issues with CPAP mask fit, causing air leaks and occasional nighttime awakenings. He is scheduled for a mask fitting appointment today to address this issue. Plan: - Patient to attend scheduled CPAP mask fitting appointment in [place] today - Continue use of CPAP machine as prescribed Back Pain Assessment: Patient reports ongoing back pain of uncertain etiology. The pain is located in the area above the kidneys. Primary care physician has evaluated the condition and ruled out kidney involvement. Differential diagnoses may include musculoskeletal issues such as muscle spasms or possible kidney stones, though further evaluation is needed for definitive diagnosis. Plan: - Defer to primary care physician for further evaluation and management of back pain the note is transcribed using speech recognition software. It is a reflection of a visit with the patient. It might have some inaccuracy, including medication names and transcribing errors, though efforts have been made to correct them. He Attends [facility] in [place] He uses medication meeting planner for medication weekly 06/10/2025 Other Gait, Strength, and Balance Training ExercisesThis handout provides simple exercises to improve your gait, strength, and balance. Theseexercises can help prevent falls, improve mobility, and enhance overall function. Perform them in [facility], use support if needed, and stop if you feel pain or dizziness.1. Gait Training Exercises- Walk in a straight line for 10-20 feet, heel-to-toe.- Step over small objects (cones or rolled towels).- Practice walking sideways and backwards.- Use a treadmill if available, under supervision.2. Balance Exercises- Stand on one foot for 10-30 seconds; switch legs.- Walk heel-to-toe in a straight line.- Use a balance board or cushion to challenge stability.- Practice rising from a chair without using your hands.3. Strength Training Exercises- [id number]: rise from a chair repeatedly.- Wall push-ups: stand at arm's length from a wall and push.- Step-ups on a low step or stairs.- Leg lifts while seated or lying down.Consult your primary care provider (PCP) before starting these exercises, especially if you havemedical conditions or difficulty performing them Ivania Graham, a patient with a history of bipolar disorder and alcohol use disorder, presents with ongoing concerns about past actions and difficulty forgiving himself. Bipolar Disorder Assessment: Patient reports mood as so-so with fluctuations. He experiences persistent rumination about past actions, particularly those that have hurt others. This preoccupation with the past appears to be a significant source of distress. Patient attends meetings (likely support groups) and psychiatric appointments as part of his management strategy. Current medication regimen includes quetiapine and Paxil, which the patient reports no complaints about. Plan: - Continue quetiapine 200 mg daily - Continue quetiapine 50 mg at bedtime - Continue Paxil 40 mg - Continue bupropion 200 mg - Maintain current medication regimen pending potential adjustments from other specialists - Continue attending support group meetings - Encourage ongoing efforts to make amends and practice self-forgivenes s Alcohol Use Disorder in remission Assessment: Patient acknowledges a history of problems with alcohol. He recognizes the ongoing nature of this issue, stating you never get things licked. However, the patient reports efforts to keep alcohol use under control and has been noted to have done really well in this regard. Plan: - Continue current management strategies for alcohol use - Reinforce positive progress in maintaining control over alcohol use - Encourage ongoing attendance at support group meetings (likely [facility] ) the note is transcribed using speech recognition software. It is a reflection of a visit with the patient. It might have some inaccuracy, including medication names and transcribing errors, though efforts have been made to correct them. He Attends [facility] in [place] He uses medication meeting planner for medication weekly 09/09/2025 Other Ivania Graham is a patient with mood disorder on psychiatric medications who reports stable mood and continues attending [facility] meetings. Mood disorder Patient reports mood is doing pretty good on current medication regimen. Currently taking quetiapine 200 mg and 50 mg at bedtime, bupropion 200 mg in the morning, and Paxil 40 mg daily, along with vitamin D supplementation . Patient continues participation in [facility] meetings, though attendance has decreased to just himself and one other person, with meetings now occurring at night due to time change. Patient notes some visual focusing difficulties at nighttime that he attributes to aging but reports doing well overall as long as nothing happens. Plan: - Continue current medication regimen given stable mood - Continue [facility] meetings - Follow-up in 3 months Marital relationship stress Patient reports ongoing marital disagreements with of 51 years, describing conflicts over household tasks and her tendency to correct him and not compromise. Patient states she thinks her way is best and gets on his case if he doesn't complete tasks immediately. Despite occasional spats, patient does not feel there is a significant problem in the relationship. Plan: - No specific interventions discussed the note is transcribed using speech recognition software. It is a reflection of a visit with the patient. It might have some inaccuracy, including medication names and transcribing errors, though efforts have been made to correct them. He Attends [facility] in [place] He uses medication meeting planner for medication weekly Plan Of Treatment Next Appt Details Provider Name:Rebel garcia, 12/09/2025 11:30:00 AM, [address] [facility] [address] [facility] [address], [place], [address], Insurance Providers Payer Name Payer Address Payer Phone Subscriber Number Group Number Insured Name Patient Relationship to Insured Coverage Start Date Coverage End Date [place] [address] [place] [address] [id number] IVANIA GRAHAM Self - patient is the insured [employer] Medicare Supplement [address] [address] [place] [address] [id number] IVANIA GRAHAM Self - patient is the insured Medical (General) History Medical History History ICD Code Problems: Aortic stenosis, non-rheumatic Atherosclerosis of coronary artery witho ut angina pectoris Bipolar II disorder, most recent episode major depressive Chronic kidney disease stage 1 Coronary atherosclerosis Essential hypertension Generalized anxiety disorder Gout History of coronary artery bypass grafti ng History of malignant neoplasm of colon Kidney stone Obesity Obsessive-compulsive disorder Persistent insomnia Testicular hypofunction Type 2 diabetes mellitus without complic ation Vitamin D deficiency , Imported from Highlights: On 07/12/2024, the patient was seen by German Cramer MD at [facility], with a history of CABG and S/P TAVR, and coronary artery disease involving [place] coronary artery of [place] heart without angina pectoris. On 01/22/2025, the patient returned to German Cramer MD at [facility], again noting the history of CABG and S/P TAVR. Subsequently, on 01/24/2025, the patient had an office visit with Leon Shelby MD at [facility] On 05/01/2025, Roderick Marshall MD at [facility] documented chronic kidney disease stage 2, coronary arteriosclerosis, essential hypertension, nephrolithiasis, nonrheumatic aortic valve stenosis, personal history of malignant neoplasm of colon, and type 2 diabetes mellitus without complication. Surgical History Surgery Date(Month/Year) Extraction of cataract ([id number]) left 0 01/29/2021 Xcapsl ctrc rmvl cplx wo ecp (67090) rig ht 02/12/2021 Removal of gallbladder (20995) 6 Heart surgery 11/06/2009
[2025-09-18 10:13] LABS: Cholesterol 90 mg/dL (0-200); HDL Direct 30 mg/dL; Triglycerides 68 mg/dL (<150)
[2025-09-18 14:10] LABS: Hemoglobin A1C 5.6 % (<5.7)
== END 2025-09-18 08:57 | disposition home or self-care (01) ==
PROVIDERS: PCP Family Medicine Adolescent Medicine; Visit Provider Family Medicine Adolescent Medicine
DX: E11.42 Type 2 diabetes mellitus with diabetic polyneuropathy (principal); E78.00 Pure hypercholesterolemia, unspecified; I10 Essential (primary) hypertension
CPT/HCPCS: 36415; 80061; 83036

== ENCOUNTER 2025-10-11 10:05 | Emergency (ER) | payer MEDICARE, SELFPAY ==
[2025-10-11 10:02] VITALS: BP 139/80; PULSE 72; RESP 19; TEMP 36.6; O2SAT 98
--- NOTE | 2025-10-11 10:26 | PC.NURSE ---
Per EDP, pt given something to eat. Provided turkey sandwich, juice and pretzels.
--- NOTE | 2025-10-11 11:11 | PC.NURSE ---
Lunch tray ordered
--- NOTE | 2025-10-11 11:12 | ED.RECABL ---
HPI - Recheck/Abnormal Lab/Rx General Chief Complaint: Recheck/Abnormal Lab/Rx Stated Complaint: ABN Labs Source: patient Mode of arrival: EMS Limitations: no limitations History of Present Illness HPI narrative: patient is an 80-year-old male who presents the ED via EMS from [facility], with report of hypoglycemia. Patient reports he was scheduled to have a routine fasting blood work performed this morning at [facility] He is a diabetic and took his normal insulin dose last night around midnight, 10 units of Novolin, as well as 22 units this morning. He did not eat with either insulin administration. He began feeling weak at [facility] and they checked his BG there, with their monitor reading Low. EMS was called. EMS gave D10 fluids approx 200mL prior to arrival. BG upon arrival 113. Patient states he is feeling improved. Alert oriented x4. Related Data Home Medications ?Medication ?Instructions ?Recorded ?Confirmed ?Last Taken ?Type bupropion HCl 200 mg tablet,12 hr 200 mg PO DAILY 02/05/20 09/16/25 05/06/23 08:00 History sustained-release quetiapine 200 mg tablet (Seroquel) 250 mg PO HS 02/13/20 09/16/25 05/05/23 21:00 History quetiapine 50 mg tablet 50 mg PO QHS 04/21/22 09/16/25 05/05/23 21:00 History aspirin 81 mg tablet,delayed 81 mg PO DAILY 04/19/23 09/16/25 05/06/23 08:00 History release (Adult Low Dose Aspirin) insulin admin supplies 04/25/23 09/10/25 Unknown History paroxetine HCl 40 mg tablet 40 mg PO HS 05/06/23 09/16/25 05/05/23 21:00 History ergocalciferol (vitamin D2) 50,000 50,000 unit PO MONTHLY 02/14/25 09/16/25 Unknown History unit tablet metoprolol succinate 50 mg 50 mg PO DAILY 02/14/25 09/16/25 Unknown History tablet,extended release 24 hr doxazosin 1 mg tablet (Cardura) 1 mg PO DAILY 09/10/25 09/16/25 Unknown History Allergies Allergy/AdvReac Type Severity Reaction Status Date / Time mold Allergy Intermediate Cough Verified 10/11/25 10:08 ragweed pollen Allergy Intermediate sneezing, Verified 10/11/25 10:08 coughing Review of Systems Review of Systems: All systems reviewed & are unremarkable except as noted in HPI. All systems reviewed & are unremarkable except as noted in HPI and below PMFSH Past Medical History Medical History BMI 29.0-29.9,adult History of mitral valve prolapse Depression with anxiety BPH (benign prostatic hyperplasia) [facility] History of colon cancer With chemotherapy and colectomy Personal history of colonic polyps Nephrolithiasis Personal history of other malignant neoplasm of large intestine (~2000) After cataract, bilateral Diabetes Hypertension Hypersomnia Sleep apnea Surgical History Surgical History History of lithotripsy History of colonoscopy with polypectomy History of ventral hernia repair History of colectomy History of prosthetic aortic valve (04/2023) History of surgical amputation of finger of right hand Partial H/O cataract removal with insertion of prosthetic lens (~2020) H/O heart artery stent (~2005) History of cholecystectomy (~1985) Hx of CABG (~2009) Triple bypass and then he had a broken wire that need to be repaired. Family History Family History Father CHF (congestive heart failure) Heart disease Kidney failure Hypertension Cerebrovascular accident Emphysema lung Mother Narcolepsy Cerebrovascular accident Heart disease Sibling Carcinoma of colon Social History Social History Social History: The patient lives with his who is the durable power prosecuting attorney for healthcare. The patient has 1 child. The patient used to smoke. 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 He also retired from the [employer]. Code status full code Smoking packs per day: 1 Smoking cigarettes per day: 20.0 Years smoked: 24 Smoking pack-years: 24.00 Smoking status: Former smoker Tobacco type: cigarettes Second hand tobacco smoke exposure: No Smoking end date: 11/07/85 Alcohol intake: never Substance use: never Substance use type: does not use Lack of Transportation: No Lack of Food: Never True Current Housing: I Have Housing Concerned About Future Housing: No Difficulty Paying Gas/Electric Bills: No Difficulty Paying for Meds: No Currently Unemployed: No Education: High School Diploma/GED Difficulty w/ Childcare or Family Care: No Living arrangements: with family Occupation/Education: retired 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 Gender identity (if verbalized by the patient): Male Sexual Orientation (if Verbalized by the Patient): Straight or Heterosexual Spiritual care concerns: No Agree to blood products: Yes Exam Narrative: GENERAL: Well appearing, well-nourished, non-toxic, in no acute distress. HEAD: Normocephalic, atraumatic. RESPIRATORY: Airway patent, respirations nonlabored. Clear to auscultation bilaterally, no rales, rhonchi, wheezing. CARDIOVASCULAR: Regular rate and rhythm without murmurs, rubs, or gallops. MUSCULOSKELETAL: Moves all extremities. No gross deformities. SKIN: Warm, dry, normal color. NEURO: A&O X3. Speech clear. Cranial nerves II-XII grossly intact. Steady gait. No ataxic movements. No focal deficits PSYCHIATRIC: Appropriate mood and affect. Normal interaction. Course Vital Signs Vital signs: Vital Signs Temperature 97.8 F 10/11/25 10:02 Pulse Rate 72 10/11/25 10:02 Respiratory Rate 19 10/11/25 10:02 Blood Pressure 139/80 10/11/25 10:02 Pulse Oximetry 98 10/11/25 10:02 Oxygen Delivery Room Air 10/11/25 10:02 Temperature 97.8 F 10/11/25 10:02 Pulse Rate 66 10/11/25 15:53 Respiratory Rate 18 10/11/25 15:53 Blood Pressure 160/58 H 10/11/25 15:53 Pulse Oximetry 98 10/11/25 15:53 Oxygen Delivery Room Air 10/11/25 10:02 [facility] MDM Narrative Medical decision making narrative: Patient presented to ED with hypoglycemia. Had dose of insulin last night and this morning but did not eat with either dosing. States he does typically eat when he takes his insulin. Was supposed to have fasting blood work performed today which is why he did not eat. Vital signs are stable upon arrival. Patient is neurologically intact. A&O x4. States he is already feeling improved. Low suspicion for acute neurologic abnormality Blood sugar 113 upon arrival after receiving small amount of D10 fluids by EMS Given food and juice. Repeat BG 88 Given lunch tray. Repeat blood sugar in the 120s. Patient was monitored in the ED for several hours. Blood sugar remaining stable in the 120s. Patient safe for discharge home. Given strict return precautions. Advised to monitor blood sugar and continue eating regular meals throughout the day today. Patient in agreement with plan. Remains neurologically intact at time of D/C. Discharged in stable condition. Differential Diagnosis Differential Diagnosis: Hypoglycemia, insulin overdose, altered mental status, CVA Medical Records I have reviewed the following patient records and this information was taken into consideration when formulating the assessment and plan.: previous labs, previous ER visits, previous hospitalizations and previous clinic visits Lab Data MDM Lab Attestation statement: I personally reviewed the patient's lab results. Labs: Lab Results 10/11/25 10/11/25 10/11/25 Range/Units 10:06 11:34 12:55 POC Capillary Glucose 113 H 88 123 H (65-105) mg/dl 10/11/25 Range/Units 14:49 POC Capillary Glucose 122 H (65-105) mg/dl Discharge Plan Discharge Clinical Impression: Hypoglycemic episode in patient with diabetes mellitus, alf (current) use of insulin Patient Disposition: Home Condition: Stable Instructions: Antibiotic Form, Hypoglycemia in a Person with Diabetes (ED), What to Do if Your Blood Sugar is Low (ED) Additional Instructions: Continue to eat regular meals throughout the day today. You may continue your insulin but it is important you eat a meal anytime you give yourself insulin. Follow-up closely with your primary care doctor for further evaluation. Return to the ED for any new or worsening concerns. Patient Language: Turkish Prescriptions: No Action bupropion HCl 200 mg tablet sustained-release 12 hr 200 mg PO DAILY quetiapine [Seroquel] 200 mg tablet 250 mg PO HS ergocalciferol (vitamin D2) 50,000 unit tablet 50,000 unit PO MONTHLY Rx Instructions: doxazosin [Cardura] 1 mg tablet 1 mg PO DAILY quetiapine 50 mg tablet 50 mg PO QHS (DME) insulin admin supplies Insulin Pen See Rx Instructions .Route Rx Instructions: As directed metoprolol succinate 50 mg tablet extended release 24 hr 50 mg PO DAILY cyanocobalamin (vitamin B-12) 1,000 mcg/mL solution 1,000 mcg IM ONCE Qty: 1 0RF paroxetine HCl 40 mg tablet 40 mg PO HS lisinopril 20 mg tablet 20 mg PO DAILY Qty: 30 0RF furosemide 20 mg tablet 20 mg PO DAILY Qty: 30 0RF aspirin [Adult Low Dose Aspirin] 81 mg tablet,delayed release (DR/EC) 81 mg PO DAILY nitroglycerin 0.4 mg tablet, sublingual 0.4 mg SUBLINGUAL Q5M PRN (Reason: Chest Pain) Qty: 25 2RF metformin 500 mg tablet extended release 24 hr See Rx Instructions .ROUTE .COMPLEX Qty: 270 3RF Dose Instruction: TAKE 3 TABLETS BY MOUTH DAILY Rx Instructions: Take 1 tablet in am & 2 tablets in pm (DME) OneTouch Ultra Test Strip See Rx Instructions .ROUTE .COMPLEX Qty: 100 3RF Dose Instruction: USE STRIP TO CHECK GLUCOSE TWICE DAILY Rx Instructions: USE STRIP TO CHECK GLUCOSE TWICE DAILY (DME) insulin syringe-needle U-100 1 mL 31 gauge x 15/64 syringe See Rx Instructions .ROUTE .COMPLEX Qty: 180 2RF Dose Instruction: USE 1 TWICE DAILY TO INJECT INSULIN Rx Instructions: USE 1 TWICE DAILY TO INJECT INSULIN Cholestyramine Light 4 gram powder 4 g PO DAILY 90 Days Qty: 410 3RF Novolin N NPH U-100 Insulin 100 unit/mL suspension See Rx Instructions .ROUTE .COMPLEX Qty: 10 3RF Dose Instruction: INJECT 22 UNITS SUBCUTANEOUSLY IN THE MORNING AND 10 UNITS IN THE EVENING Rx Instructions: INJECT 22 UNITS SUBCUTANEOUSLY IN THE MORNING AND 10 UNITS IN THE EVENING allopurinol 300 mg tablet 300 mg PO DAILY Qty: 90 3RF testosterone cypionate 200 mg/mL oil 300 mg IM MONTHLY Qty: 5 1RF tamsulosin 0.4 mg capsule See Rx Instructions .ROUTE .COMPLEX Qty: 90 3RF Dose Instruction: TAKE 1 CAPSULE BY MOUTH DAILY Rx Instructions: TAKE 1 CAPSULE BY MOUTH DAILY cyanocobalamin (vitamin B-12) 1,000 mcg/mL kit 1,000 mcg subcut MONTHLY Qty: 3 0RF atorvastatin 80 mg tablet 80 mg PO DAILY Qty: 90 3RF Follow-up/Referrals: Andres Lindquist MD [Primary Care Provider, Family Practice] Time of Disposition: 15:06
[2025-10-11 12:20] VITALS: BP 174/75; PULSE 64; RESP 16; O2SAT 97
[2025-10-11 13:55] VITALS: BP 159/66; PULSE 59; RESP 19; O2SAT 98
[2025-10-11 15:53] VITALS: BP 160/58; PULSE 66; RESP 18; O2SAT 98
== END 2025-10-11 15:54 | disposition home or self-care (01) ==
PROVIDERS: Emergency Provider Physician Assistant; PCP Family Medicine Adolescent Medicine
DX: E11.649 Type 2 diabetes mellitus with hypoglycemia without coma (principal); Z79.4 Long term (current) use of insulin; F41.8 Other specified anxiety disorders; Z85.038 Personal history of other malignant neoplasm of large intestine; Z95.1 Presence of aortocoronary bypass graft; Z95.2 Presence of prosthetic heart valve; Z87.891 Personal history of nicotine dependence
CPT/HCPCS: 82948; 99282